=== PATIENT | male | born 1930 | race Hispanic/Latino ===

== ENCOUNTER 2017-03-23 15:35 | Inpatient (IN) | payer MEDICARE ==
[2017-03-23 15:47] VITALS: BMI 25.8
--- NOTE | 2017-03-23 16:28 | ED PDOC ---
Arrival/HPI - General Historian: Patient, Family - General Chief Complaint: Syncope Time Seen by Provider: 03/23/17 15:41 - History of Present Illness Narrative History of Present Illness (Text): 03/23/17 16:22 Pt is a 86 year old male with a complicated past medical history including HTN, DM, CHF with last known EF of 20%, AV valve replacement, CAD, CABGx3, [place] 01/2017 , carotidectomy for blockage, mesenteric ischemia and chronic diarrhea presents with syncopal episode 1 hour prior to presentation to the emergency department. Pt is joined by family in room. At the time of the syncopal episode the patient was changing his shirt while standing when he began to feel dizzy and passed out into the arms of his daughter. His daughter denies trauma to the head. Family indicates the patient has had a combination of watery diarrhea, poor oral intake due to lack of appetite, and episodes of intense abdominal pain for the past week. Patient denies chest pain, palpatations, headache, fever, shortness of breath, and difficulty with urination. (Otf [place]) Past Medical History - Provider Review Nursing Documentation Reviewed: Yes - Infectious Disease Hx of Infectious Diseases: None - Tetanus Immunization Tetanus Immunization: Unknown - Cardiac Hx Cardiac Disorders: Yes Hx [place]: Yes (January 2017) Hx Hypertension: Yes Other/Comment: CABG X2, AORTIC VALVE REPLACED. ANGIOPLASTY - Pulmonary Hx Respiratory Disorders: No - Neurological Hx Neurological Disorder: Yes (Frequent Falls) Other/Comment: FREQUENT FALLS - HEENT Hx HEENT Disorder: No - Renal Hx Renal Disorder: No - Endocrine/Metabolic Hx Endocrine Disorders: Yes Hx Diabetes Mellitus Type 1: Yes - Hematological/Oncological Hx Blood Disorders: Yes Hx Cancer: Yes (PROSTATE & SKIN) - Integumentary Hx Dermatological Disorder: Yes (Skin Cancer) Other/Comment: UNKNOWN SKIN CA - Musculoskeletal/Rheumatological Hx Musculoskeletal Disorders: Yes Hx Falls: Yes - Gastrointestinal Hx Gastrointestinal Disorders: Yes (chronic diarrhea) - Genitourinary/Gynecological Hx Genitourinary Disorders: Yes Hx Prostate Problems: Yes - Psychiatric Hx Psychophysiologic Disorder: No Hx Substance Use: No - Surgical History Hx Cardiac Catheterization: Yes Hx Coronary Stent: Yes Hx Open Heart Surgery: Yes (right carotid artery angio plasty left femeral artery) Hx Valve Replacement: Yes (aortic) - Suicidal Assessment Feels Threatened In Home Enviroment: No Family/Social History - Physician Review Nursing Documentation Reviewed: Yes Family/Social History: Unknown Family HX Smoking Status: Former Smoker Hx Alcohol Use: No Hx Substance Use: No Allergies/Home Meds Allergies/Adverse Reactions: Allergies Iodinated Contrast- Oral and IV Dye Allergy (Verified 03/23/17 15:54) DIZZINESS iodine Allergy (Verified 03/23/17 15:54) DIZZINESS Home Medications: Home Meds Medication Instructions Recorded Confirmed Atorvastatin Calcium [Lipitor] 80 mg PO DAILY 01/09/14 03/23/17 Gemfibrozil 600 mg PO DAILY 01/09/14 03/23/17 Glipizide [Glipizide Xl] 2.5 mg PO BID 01/09/14 03/23/17 Isosorbide Mononitrate [Imdur] 30 mg PO DAILY 01/09/14 03/23/17 Metoprolol Succinate [Toprol XL] 100 mg PO DAILY 01/09/14 03/23/17 Clopidogrel [Plavix] 75 mg PO DAILY 03/23/17 03/23/17 Lisinopril [Zestril] 10 mg PO DAILY 03/23/17 03/23/17 Lisinopril/Hydrochlorothiazide 25 mg PO DAILY 03/23/17 03/23/17 [Lisinopril-Hctz 20-25 mg Tab] Review of Systems - Review of Systems Constitutional: Weight Change (weight loss). absent: Fevers Eyes: Vision Changes (blurry vision) Respiratory: absent: SOB, Cough Cardiovascular: absent: Chest Pain, Palpitations, Edema Gastrointestinal: Abdominal Pain, Diarrhea (acute on chronic), Nausea, Vomiting (x1 episode) Genitourinary Male: absent: Dysuria, Frequency Musculoskeletal: Back Pain (lower back pain) Skin: absent: Rash, Pruritis Neurological: Dizziness. absent: Headache, Focal Weakness Psychiatric: absent: Anxiety, Depression Physical Exam Vital Signs Reviewed: Yes Temperature: Afebrile Blood Pressure: Hypotensive Pulse: Regular Respiratory Rate: Normal Appearance: Positive for: Well-Appearing Pain Distress: None Mental Status: Positive for: Alert and Oriented X 3 Finger Stick Blood Glucose: 147 - Systems Exam Head: Present: Atraumatic, Normocephalic Pupils: Present: PERRL Extroacular Muscles: Present: EOMI Conjunctiva: Present: Normal Mouth: Present: Moist Mucous Membranes Neck: Present: Normal Range of Motion Respiratory/Chest: Present: Clear to Auscultation, Good Air Exchange. No: Respiratory Distress, Wheezes, Rales Cardiovascular: Present: Regular Rate and Rhythm, Murmurs (systolic ejection murmur) Abdomen: Present: Distention, Normal Bowel Sounds. No: Tenderness, Peritoneal Signs Upper Extremity: Present: Normal Inspection, Normal ROM, NORMAL PULSES Lower Extremity: Present: Normal Inspection, NORMAL PULSES, Normal ROM Neurological: Present: GCS=15, CN II-XII Intact, Speech Normal, Motor Func Grossly Intact, Normal Sensory Function Skin: Present: Warm, Dry Psychiatric: Present: Alert, Oriented x 3 Medical Decision Making - Lab Interpretations I have reviewed the lab results: Yes - EKG Interpretation Interpreted by ED Physician: Yes Type: 12 lead EKG ED Course and Treatment: 03/23/17 16:41 Impression: Mr. Chun is an 86 year old male with significant past medical history for CAD , CABGx3, [place], HTN, AV valve replacement, primary AV block, mesenteric ischemia and history of prostate cancer who presents with one syncopal episode 1 hour prior to presentation to the emergency department. Differential Diagnosis included but are not limited to: - syncope 2/2 neurogenic vs. hypovolemic vs. cardiacgenic - abdominal pain 2/2 mesenteric ischemia vs. gastroenteritis vs. aortic aneurysm - Acute Kidney injury Plan: - LABS: CBC, CMP, Mg, Phos, Lipase, PT, PTT, CK, Troponin, Urinalysis - IMAGING: EKG, CXR, Head CT, CT Angiogram of abdomen - Meds: IVF -- Reassess and disposition Progress Notes: 03/23/17 17:04 03/23/17 17:31 - Orthostatic VS positive - IV contrast CT abdomen cancelled 2/2 elevated Cr function, will go ahead with non-contrast CT - IVF for rehydration being tolerated 03/23/17 17:57 - Lactate 4.0 with negative SIRS criteria credits elevation likely 2/2 volume depletion (Otf [place]) 03/23/17 18:39 86 yo male s/p syncopal episode. Patient also reports intermittent abdominal pain and diarrhea. No abdominal pain now. I agree with resident history, physical, assessment and disposition, except that patient does not have an elevated lactic acid at 4.0 as noted. Exam: Abd soft and not tender. No distended. Neuro; CN2-12 intact, NFD, sensation intact, MS 5/5 Case was discussed with Dr. Smiley who knows patient well. He evaluated patient in the ED. He recommended a clear liquid diet and to pace him on consult. Case discussed with Dr. Correa who agrees to admit to Remote Telemetry. Accession No. : [id number] Patient Name / ID : PETE Colmenares / [id number] Exam Date : 03/23/2017 18:00:36 ( Approved ) Shuttlecock Assembler : Moshe Bell MD PROCEDURE: CT HEAD WITHOUT CONTRAST. IMPRESSION: No intracranial mass, hemorrhage or evidence of acute infarct. Age-appropriate involutional changes 03/23/17 18:46 Accession No. : [id number] Patient Name / ID : PETE Colmenares / [id number] Exam Date : 03/23/2017 18:04:39 ( Approved ) Creator : Moshe Bell MD Report Date : 03/23/2017 18:44:16 PROCEDURE: CT Abdomen and Pelvis without intravenous contrast COMPARISON: 05/28/2013 IMPRESSION: No acute abnormality. Saccular infrarenal abdominal aortic aneurysm mildly increased in size from 05/28/2013. Cholelithiasis without evidence of cholecystitis. Cardiomegaly and CABG. (Alex Crowley) - Lab Interpretations Lab Results: 03/23/17 16:31 03/23/17 16:31 Lab Results 03/23/17 17:25: Urine Color Yellow, Urine Appearance Clear, Urine pH 6.0, Ur Specific [place] 1.020, Urine Protein Negative, Urine Glucose (UA) Negative, Urine Ketones Negative, Urine Blood Negative, Urine Nitrate Negative, Urine Bilirubin Negative, Urine Urobilinogen 0.2, Ur Leukocyte Esterase Negative 03/23/17 16:35: PT 11.3, INR 1.05, APTT 27.0 03/23/17 16:31: Sodium 133, Potassium 3.9, Chloride 96 L, Carbon Dioxide 22, Anion Gap 19, BUN 98 H, Creatinine 2.3 H, Est GFR ( Amer) 33, Est GFR ( Non-Af Amer) 27, Random Glucose 129 H, Calcium 9.4, Phosphorus 5.7 H, Magnesium 2.3 H, Total Bilirubin 0.8, AST 19, ALT 20, Alkaline Phosphatase 85, Lactate Dehydrogenase 421, Total Creatine Kinase 76, Troponin I 0.02 D, Total Protein 7.2, Albumin 3.9, Globulin 3.3, Albumin/Globulin Ratio 1.2, Lipase 159 03/23/17 16:31: WBC 10.4, RBC 3.44 L, Hgb 11.5 L, Hct 34.2 L, MCV 99.4, MCH 33.4 , MCHC 33.6, RDW 13.7, Plt Count 161, MPV 12.5 H, Gran % 71.0 H, Lymph % (Auto) 17.4 L, [place] % (Auto) 11.0 H, Eos % (Auto) 0.5 L, Baso % (Auto) 0.1, Gran # 7.40 H, Lymph # 1.8, [place] # 1.2 H, Eos # 0.1, Baso # 0.01 - RAD Interpretation Radiology Orders: 03/23/17 16:35 HEAD W/O CONTRAST [CT] Stat 03/23/17 16:36 CHEST PORTABLE [RAD] Stat 03/23/17 16:58 ABD & PELVIS W/O PO OR IV CONT [CT] Stat - EKG Interpretation EKG Interpretation (Text): 03/23/17 16:49 NSR w/ rate of 70 1st degree AV block No acute changes from previous EKG (Otf [place]) - Medication Orders Current Medication Orders: Acetaminophen (Tylenol 325mg Tab) 650 mg PO Q4H PRN PRN Reason: Pain, Mild (1-3) Sodium Chloride (Sodium Chloride 0.9%) 1,000 mls @ 125 mls/hr IV .Q8H YULISA Last Admin: 03/23/17 17:08 Dose: 125 mls/hr Sodium Chloride (Sodium Chloride 0.9%) 1,000 mls @ 100 mls/hr IV .Q10H STA Stop: 03/24/17 04:39 Ondansetron HCl (Zofran Inj) 4 mg IVP Q4H PRN PRN Reason: Nausea/Vomiting - PA / [employer]PERATOR / Resident Statement / has reviewed & agrees with the documentation as recorded. / has examined the patient and agrees with the treatment plan. Disposition/Present on Arrival - Present on Arrival Any Indicators Present on Arrival: No History of DVT/PE: No History of Uncontrolled Diabetes: No Urinary Catheter: No History of Decub. Ulcer: No History Surgical Site Infection Following: None - Disposition Have Diagnosis and Disposition been Completed?: Yes Disposition Time: 18:15 Patient Plan: Admission - Disposition Diagnosis: SANCHEZ (acute kidney injury), Hypovolemia Disposition: HOSPITALIZED Patient Problems: Current Active Problems Problem Status Onset SANCHEZ (acute kidney injury) Acute Hypovolemia Acute Condition: STABLE Referrals: Mayco Dixon MD [Primary Care Provider] - Follow up with primary
[2017-03-23 16:41] LABS: BASO # 0.01 K/mm3 (0.0-2.0); BASO % 0.1 % (0.0-3.0); EOS # 0.1 (0.0-0.7); EOS % 0.5 % (1.5-5.0); HEMOGLOBIN 11.5 gm/dL (14.0-18.0); LYMPH # 1.8 (1.2-3.4); LYMPH % 17.4 % (22.0-35.0); MEAN CELL VOLUME 99.4 fL (80.0-105.0); MEAN CORPUSCULAR HEMOGLOBIN 33.4 pg (25.0-35.0); MEAN CORPUSCULAR HGB CONC 33.6 g/dl (31.0-37.0); MEAN PLATELET VOLUME 12.5 fl (7.0-11.0); MONO # 1.2 (0.1-0.6); PLATELET COUNT 161 10^3/uL (120.0-450.0); RBC 3.44 10^6/uL (3.5-6.1); RED CELL DISTRIBUTION WIDTH 13.7 % (11.5-14.5); WHITE BLOOD COUNT 10.4 10^3/ul (4.5-11.0)
[2017-03-23 16:53] LABS: ALB/GLOB RATIO 1.2 (1.1-1.8); ALBUMIN 3.9 g/dL (3.0-4.8); CALCIUM 9.4 mg/dL (8.4-10.5); MAGNESIUM 2.3 mg/dL (1.7-2.2)
[2017-03-23] MEDS: Sodium Chloride 0.9% 1,000 ML IV SCH (17:08)
[2017-03-23 17:27] LABS: INR 1.05 (0.93-1.08); PROTHROMBIN TIME 11.3 Seconds (9.9-11.8)
[2017-03-23 17:56] LABS: TROPONIN I 0.02 ng/mL
[2017-03-23 18:04] LABS: URINE BILIRUBIN NEGATIVE (NEGATIVE); URINE BLOOD NEGATIVE (NEGATIVE); URINE GLUCOSE (UA) NEGATIVE (NEGATIVE); URINE LEUKOCYTE ESTERASE NEGATIVE Leu/uL (NEGATIVE); URINE NITRATE NEGATIVE (NEGATIVE); URINE PROTEIN NEGATIVE mg/dL (<30 mg/dL); URINE UROBILINOGEN 0.2 E.U./dL (<1 E.U./dL)
[2017-03-23 18:06] LABS: URINE APPEARANCE CLEAR (CLEAR); URINE COLOR YELLOW (YELLOW)
--- NOTE | 2017-03-23 18:27 | CT ---
PROCEDURE: CT HEAD WITHOUT CONTRAST. HISTORY: syncope COMPARISON: 01/10/2014 TECHNIQUE: Axial computed tomography images were obtained through the head/brain without intravenous contrast. Radiation dose: Total exam DLP = 774.23 mGy-cm. This CT exam was performed using one or more of the following dose reduction techniques: Automated exposure control, adjustment of the mA and/or kV according to patient size, and/or use of iterative reconstruction technique. FINDINGS: HEMORRHAGE: No intracranial hemorrhage. BRAIN: No mass effect or edema. Mild to moderate diffuse age-appropriate cerebral atrophy. There is mild periventricular white matter lucency consistent with chronic microvascular ischemic change. Tiny white matter lacune in the high right frontal deep white matter. No evidence of acute infarct. VENTRICLES: Unremarkable. No hydrocephalus. CALVARIUM: Unremarkable. PARANASAL SINUSES: Unremarkable as visualized. No significant inflammatory changes. MASTOID AIR CELLS: Unremarkable as visualized. No inflammatory changes. OTHER FINDINGS: None. IMPRESSION: No intracranial mass, hemorrhage or evidence of acute infarct. Age-appropriate involutional changes.
[2017-03-23] MEDS ORDERED: Sodium Chloride 0.9% 1,000 ML IV STA (18:40)
--- NOTE | 2017-03-23 18:45 | CT ---
PROCEDURE: CT Abdomen and Pelvis without intravenous contrast HISTORY: abd pain COMPARISON: 05/28/2013 TECHNIQUE: Without contrast.. Contrast Dose: 0 Radiation dose: Total exam DLP = 415.95 mGy-cm. This CT exam was performed using one or more of the following dose reduction techniques: Automated exposure control, adjustment of the mA and/or kV according to patient size, and/or use of iterative reconstruction technique. FINDINGS: LOWER THORAX: Cardiomegaly. No infiltrate/ effusion. CABG. LIVER: Unremarkable. No gross lesion or ductal dilatation. Examination of 05/28/2013. GALLBLADDER AND BILE DUCTS: Cholelithiasis. No mural thickening or pericholecystic fluid. PANCREAS: Unremarkable. No gross lesion or ductal dilatation. SPLEEN: Unremarkable. ADRENALS: Unremarkable. No mass. KIDNEYS AND URETERS: Unremarkable. No hydronephrosis. No solid mass. VASCULATURE: Mildly saccular infrarenal abdominal aortic aneurysm measuring up to 4.6 cm A-P. This has increased slightly in size from 05/28/2013, at which time this measured 4.2 cm A-P. . Otherwise no significant change from prior. Small amount of curvilinear calcifications seen within the aneurysm lumen unchanged from prior examination. This is unlikely to represent chronic dissection. Uncertain significance. BOWEL: Unremarkable. No obstruction. No gross mural thickening. APPENDIX: Unremarkable. Normal appendix. PERITONEUM: Unremarkable. No free fluid. No free air. LYMPH NODES: Unremarkable. No enlarged lymph nodes. BLADDER: Unremarkable. REPRODUCTIVE: Radiation seed implants are seen in prostate bed. BONES: No acute fracture. Grade 1 retrolisthesis at L3-4. OTHER FINDINGS: None. IMPRESSION: No acute abnormality. Saccular infrarenal abdominal aortic aneurysm mildly increased in size from 05/28/2013. Cholelithiasis without evidence of cholecystitis. Cardiomegaly and CABG.
[2017-03-23 19:26] LABS: VENOUS BLOOD GAS BASE EXCESS -2.4 mmol/L (0.0-2.0); VENOUS BLOOD GAS PO2 54 mm/Hg (30-55); VENOUS BLOOD PH 7.31 (7.32-7.43)
--- NOTE | 2017-03-23 21:24 | CP.PCM.PN ---
Subjective - Date & Time of Evaluation Date of Evaluation: 03/23/17 Time of Evaluation: 21:23 - Subjective Subjective: Patient is alert and oriented x3, admitted for syncopal episode, requested to be DNR/DNI, patients family is aware of the same, PMD has been notified by the nurse. DNR/DNI order inserted in the chart. Objective - Vital Signs/Intake and Output Vital Signs (last 24 hours): Temp Pulse Resp BP Pulse Ox 98.6 F 61 16 120/65 100 03/23/17 21:03 03/23/17 21:03 03/23/17 21:03 03/23/17 21:03 03/23/17 21:03 - Medications Medications: Current Medications Acetaminophen (Tylenol 325mg Tab) 650 mg PO Q4H PRN PRN Reason: Pain, Mild (1-3) Sodium Chloride (Sodium Chloride 0.9%) 1,000 mls @ 125 mls/hr IV .Q8H YULISA Last Admin: 03/23/17 17:08 Dose: 125 mls/hr Sodium Chloride (Sodium Chloride 0.9%) 1,000 mls @ 100 mls/hr IV .Q10H STA Stop: 03/24/17 04:39 Ondansetron HCl (Zofran Inj) 4 mg IVP Q4H PRN PRN Reason: Nausea/Vomiting - Labs Labs: PT 11.3 Seconds (9.9-11.8) 03/23/17 16:35 INR 1.05 (0.93-1.08) 03/23/17 16:35 APTT 27.0 Seconds (23.7-30.8) 03/23/17 16:35
[2017-03-24] MEDS: Sodium Chloride 0.9% 1,000 ML IV SCH ×2 (04:17→20:50)
[2017-03-24 08:37] LABS: BASO # 0.01 K/mm3 (0.0-2.0); BASO % 0.1 % (0.0-3.0); EOS # 0.1 (0.0-0.7); EOS % 1.3 % (1.5-5.0); GRAN # 5.92 (1.4-6.5); GRAN % 67.5 % (50.0-68.0); HEMOGLOBIN 11.1 gm/dL (14.0-18.0); LYMPH # 1.7 (1.2-3.4); LYMPH % 18.9 % (22.0-35.0); MEAN CELL VOLUME 103.3 fL (80.0-105.0); MEAN CORPUSCULAR HEMOGLOBIN 33.7 pg (25.0-35.0); MEAN CORPUSCULAR HGB CONC 32.6 g/dl (31.0-37.0); MEAN PLATELET VOLUME 12.9 fl (7.0-11.0); MONO # 1.1 (0.1-0.6); MONO % 12.2 % (1.0-6.0); PLATELET COUNT 130 10^3/uL (120.0-450.0); RBC 3.29 10^6/uL (3.5-6.1); RED CELL DISTRIBUTION WIDTH 13.6 % (11.5-14.5); WHITE BLOOD COUNT 8.8 10^3/ul (4.5-11.0)
[2017-03-24 08:52] LABS: ALB/GLOB RATIO 1.2 (1.1-1.8); ALBUMIN 3.8 g/dL (3.0-4.8); CALCIUM 9.1 mg/dL (8.4-10.5)
--- NOTE | 2017-03-24 08:52 | RAD ---
HISTORY: Abdominal pain COMPARISON: No prior. FINDINGS: LUNGS: The lungs are clear. PLEURA: No significant pleural effusion identified, no pneumothorax apparent. CARDIOVASCULAR: The heart is normal in size. Status post CABG. OSSEOUS STRUCTURES: No significant abnormalities. VISUALIZED UPPER ABDOMEN: Normal. OTHER FINDINGS: None. IMPRESSION: No active pulmonary disease.
[2017-03-24] MEDS: Metoprolol Succinate 100 mg XL Tab PO SCH (09:36)
--- NOTE | 2017-03-24 12:38 | CP.PCM.CON ---
<Elva Gillis - Last Filed: 03/24/17 12:41> History of Present Illness - History of Present Illness History of Present Illness: Seen and examined at bedside, chart reviewed. Request consult for abdominal pain. HPI: This is a 86 year old female with a history of mesenteric Ischemic, HTN, CHF with EF of 20%, AV valve replacement, CABG, recent [place](01/2017), Cdiff, came to the hospital with episode of syncopal episode. The patient was at home at the time, changing his clothes started to feel dizzy and passed out, his daughter was caught the patient, pt did not have any head injury. Ct scan of the head was negative. He states that he had been having watery diarrhea, he says that it is chronic, he had poor oral intake , was also having abdominal pain. He denies any recent antibiotics use, contributing oral intake, or sick contacts or travel. Prior to coming to hospital he had taken Keopectate, his last BM was yesterday prior coming to the ER, No BM since admitted. He was eating breakfast, no N/V, abdominal pain or complaints of bleeding. He had a ct scan A&P and report saccular infra renal AAA w/ mild increase from 4.2 to 4.6. GB stone. PMH: messenteric ischemia, CHF, HTN, recent [place], Cdiff, Aortic Valve replacement , HLD, DM, type II, Prostate Cnacer, Skin Cancer PSH: Carotidectomy for blockage, CABG, Aortic valve replacement Social HX: former smoker, denies ETOH, drugs Allergies: Iodinated contrast: oral and IV dye MEDS: reviewed as per MAR Family HX: noncontributory at this time ROS: systems reviewed, with positive findings, see HPI Past Patient History - Infectious Disease Hx of Infectious Diseases: None - Tetanus Immunizations Tetanus Immunization: Unknown - Past Social History Smoking Status: Former Smoker - CARDIAC Hx Cardiac Disorders: Yes Hx Circulatory Problems: Yes Hx Congestive Heart Failure: Yes Hx Hypertension: Yes Other/Comment: CABG X2, AORTIC VALVE REPLACED. ANGIOPLASTY - PULMONARY Hx Respiratory Disorders: No - NEUROLOGICAL Hx Neurological Disorder: Yes (Frequent [place]) Other/Comment: F[place]QU[place] - HEENT Hx HEENT Problems: No - RENAL Hx Chronic Kidney Disease: No - ENDOCRINE/METABOLIC Hx Endocrine Disorders: Yes Hx Diabetes Mellitus Type 2: Yes - HEMATOLOGICAL/ONCOLOGICAL Hx Blood Disorders: Yes Hx Cancer: Yes (PROSTATE & SKIN) Hx Shingles: Yes - INTEGUMENTARY Hx Dermatological Problems: Yes (Skin Cancer) Other/Comment: UNKNOWN SKIN CA - MUSCULOSKELETAL/RHEUMATOLOGICAL Hx Musculoskeletal Disorders: Yes Hx Falls: Yes - GASTROINTESTINAL Hx Gastrointestinal Disorders: Yes (chronic diarrhea) - GENITOURINARY/GYNECOLOGICAL Hx Genitourinary Disorders: Yes Hx Prostate Problems: Yes - PSYCHIATRIC Hx Psychophysiologic Disorder: No - SURGICAL HISTORY Hx Cardiac Catheterization: Yes Hx Coronary Stent: Yes Hx Open Heart Surgery: Yes (right carotid artery angio plasty left femeral artery) Hx Valve Replacement: Yes (aortic) Meds Allergies/Adverse Reactions: Allergies Allergy/AdvReac Type Severity Reaction Status Date / Time Iodinated Contrast- Oral and Allergy DIZZINESS Verified 03/23/17 15:54 IV Dye iodine Allergy DIZZINESS Verified 03/23/17 15:54 - Medications Medications: Current Medications Acetaminophen (Tylenol 325mg Tab) 650 mg PO Q4H PRN PRN Reason: Pain, Mild (1-3) Atorvastatin Calcium (Lipitor) 80 mg PO DAILY [facility] Last Admin: 03/24/17 09:35 Dose: 80 mg Clopidogrel Bisulfate (Plavix) 75 mg PO DAILY [facility] Last Admin: 03/24/17 09:35 Dose: 75 mg Gemfibrozil (Lopid) 600 mg PO DAILY [facility] Last Admin: 03/24/17 09:35 Dose: 600 mg Sodium Chloride (Sodium Chloride 0.9%) 1,000 mls @ 75 mls/hr IV .[id number] [facility] Metoprolol Succinate (Toprol Xl) 100 mg PO DAILY [facility] Last Admin: 03/24/17 09:36 Dose: 100 mg Ondansetron HCl (Zofran Inj) 4 mg IVP Q4H PRN PRN Reason: Nausea/Vomiting Physical Exam - Constitutional Appears: No Acute Distress - Head Exam Head Exam: NORMAL INSPECTION - Eye Exam Eye Exam: Normal appearance. absent: Scleral icterus - ENT Exam ENT Exam: Mucous Membranes Moist - Neck Exam Neck exam: Positive for: Normal Inspection - Respiratory Exam Respiratory Exam: Decreased Breath Sounds, NORMAL BREATHING PATTERN. absent: Rhonchi, Wheezes, Respiratory Distress - Cardiovascular Exam Cardiovascular Exam: +S1, +S2 - GI/Abdominal Exam GI & Abdominal Exam: Normal Bowel Sounds, Soft. absent: Distended, Guarding, Organomegaly, Rebound, Tenderness - Extremities Exam Extremities exam: Positive for: pedal pulses present. Negative for: calf tenderness, pedal edema - Neurological Exam Neurological exam: Alert, Oriented x3 - Skin Skin Exam: Dry, Warm Results - Vital Signs Recent Vital Signs: Last Vital Signs Temp 98.6 F 03/24/17 06:00 Pulse 71 03/24/17 10:00 Resp 22 03/24/17 06:00 BP 110/58 L 03/24/17 09:36 Pulse Ox 95 03/24/17 06:00 - Labs Result Diagrams: 03/24/17 08:15 03/24/17 08:15 Labs: Laboratory Results - last 24 hr 03/23/17 03/24/17 03/24/17 19:21 08:15 08:15 WBC 8.8 RBC 3.29 L Hgb 11.1 L Hct 34.0 L MCV 103.3 MCH 33.7 MCHC 32.6 RDW 13.6 Plt Count 130 MPV 12.9 H Gran % 67.5 Lymph % (Auto) 18.9 [place] % (Auto) 12.2 H Eos % (Auto) 1.3 L Baso % (Auto) 0.1 Gran # 5.92 Lymph # 1.7 [place] # 1.1 H Eos # 0.1 Baso # 0.01 pO2 54 VBG pH 7.31 L VBG pCO2 48.0 VBG HCO3 24.2 VBG Total CO2 25.7 VBG O2 Sat (Calc) 88.8 H VBG Base Excess -2.4 L VBG Potassium 3.6 Sodium 133.0 138 Chloride 99.0 103 Glucose 96 Lactate 1.2 FiO2 21.0 Potassium 4.3 Carbon Dioxide 23 Anion Gap 16 BUN 86 H Creatinine 1.6 H Est GFR ( Amer) 50 Est GFR (Non-Af Amer) 41 Random Glucose 115 H Calcium 9.1 Total Bilirubin 0.8 AST 20 ALT 20 Alkaline Phosphatase 88 Total Protein 7.0 Albumin 3.8 Globulin 3.2 Albumin/Globulin Ratio 1.2 Venous Blood Potassium 3.6 Assessment & Plan - Assessment and Plan (Free Text) Assessment: ASSESSMENT: Abdominal pain Diarrhea, acute on chronic? Dehydration Syncopy H/O Mesenteric Ischemia AAA, 4.6 cm, increase in size (4.2) evident on ct scan H/O Cdiff HTN CAD H/O CABG Aortic Valve Replacement DM, type II PLAN: stool cdiff stool culture continue IVF for hydration DVT prophylaxsis on Plavix monitor electrolytes diet as tolerated Thank you for this consult and for allowing us to participate in your patient care, will make further recommendation based upon clinical course. Seen and discussed with Dr. Smiley. <Prudence Smiley V - Last Filed: 03/24/17 21:49> Meds - Medications Medications: Current Medications Acetaminophen (Tylenol 325mg Tab) 650 mg PO Q4H PRN PRN Reason: Pain, Mild (1-3) Atorvastatin Calcium (Lipitor) 80 mg PO DAILY [facility] Last Admin: 03/24/17 09:35 Dose: 80 mg Clopidogrel Bisulfate (Plavix) 75 mg PO DAILY [facility] Last Admin: 03/24/17 09:35 Dose: 75 mg Gemfibrozil (Lopid) 600 mg PO DAILY [facility] Last Admin: 03/24/17 09:35 Dose: 600 mg Sodium Chloride (Sodium Chloride 0.9%) 1,000 mls @ 75 mls/hr IV .[id number] [facility] Metoprolol Succinate (Toprol Xl) 100 mg PO DAILY [facility] Last Admin: 03/24/17 09:36 Dose: 100 mg Ondansetron HCl (Zofran Inj) 4 mg IVP Q4H PRN PRN Reason: Nausea/Vomiting Results - Vital Signs Recent Vital Signs: Last Vital Signs Temp 98.6 F 03/24/17 16:00 Pulse 65 03/24/17 18:00 Resp 19 03/24/17 16:00 BP 121/61 03/24/17 16:00 Pulse Ox 95 03/24/17 16:00 - Labs Result Diagrams: 03/24/17 08:15 03/24/17 08:15 Labs: Laboratory Results - last 24 hr 03/24/17 03/24/17 08:15 08:15 WBC 8.8 RBC 3.29 L Hgb 11.1 L Hct 34.0 L MCV 103.3 MCH 33.7 MCHC 32.6 RDW 13.6 Plt Count 130 MPV 12.9 H Gran % 67.5 Lymph % (Auto) 18.9 L [place] % (Auto) 12.2 H Eos % (Auto) 1.3 L Baso % (Auto) 0.1 Gran # 5.92 Lymph # 1.7 [place] # 1.1 H Eos # 0.1 Baso # 0.01 Sodium 138 Potassium 4.3 Chloride 103 Carbon Dioxide 23 Anion Gap 16 BUN 86 H Creatinine 1.6 H Est GFR ( Amer) 50 Est GFR (Non-Af Amer) 41 Random Glucose 115 H Calcium 9.1 Total Bilirubin 0.8 AST 20 ALT 20 Alkaline Phosphatase 88 Total Protein 7.0 Albumin 3.8 Globulin 3.2 Albumin/Globulin Ratio 1.2 Attending/Attestation - Attestation I have personally seen and examined this patient.: Yes I have fully participated in the care of the patient.: Yes I have reviewed all pertinent clinical information: Yes Notes (Text): This
--- NOTE | 2017-03-24 13:13 | CARD ---
APPROVED REPORT EKG Measurement Heart [id number] <Conclusion> Sinus rhythm with 1st degree AV block Left bundle branch block Abnormal ECG
--- NOTE | 2017-03-24 17:59 | HP ---
HISTORY OF PRESENT ILLNESS: This is an 86-year-old male who has come into the hospital with a history of coronary artery disease, CABG, carotidectomy, mesenteric ischemia. The patient says he has been having diarrhea. He felt like he is going to pass out prior to coming to the ER. The patient was changing his shirt and he says he became dizzy. He says he had taken some laxatives as well. He has been having poor appetite. He has been having abdominal pain for the past week. The patient is having watery diarrhea. He says he is feeling better. He denies any fevers or chills. No nausea. No weakness in the arms or the legs. No palpitations, no headaches. All other review of symptoms are within normal limits. ALLERGIES: IODINATED CONTRAST. HOME MEDICATIONS: Lipitor, gemfibrozil, glipizide, Imdur, Toprol, Plavix, Zestril, lisinopril/hydrochlorothiazide. PAST MEDICAL HISTORY: As above. Also, diabetes type 2, hearing impairment, falls, right carotid artery angioplasty, dyslipidemia, hypertension, prostate and skin cancer. SOCIAL HISTORY: He is a former smoker. He denies alcohol and substance abuse. FAMILY HISTORY: Noncontributory. PHYSICAL EXAMINATION: GENERAL: Lying in bed, comfortable, in no acute distress. VITAL SIGNS: Temperature 98.6, pulse of 92, blood pressure is 108/56, respirations 22, O2 saturation 95%. Height is 5 feet 6 inches, weight is 160 pounds, BMI is 25.8. HEENT: Anicteric sclerae. PERRLA. EOMI. Mouth: No oral lesions. No ulcers. Moist mucosa. NECK: No JVD, adenopathy, thyromegaly or bruits. CARDIOVASCULAR: S1 and S2 regular. No murmurs, rubs or gallops. LUNGS: Good bilateral air entry. No wheezes, rales or rhonchi. Chest gutierrez, he has a mid thoracic scar from his CABG. ABDOMEN: Bowel sounds are positive, soft, nontender, nondistended. No hepatosplenomegaly. PSYCHIATRIC: He is alert, awake and oriented. Good insight and normal affect. NEUROLOGICAL: No facial asymmetry. Tongue is midline. No uvular deviation. Power is 5/5 in upper extremity and lower extremity. EXTREMITIES: Full range of motion. 1+ pulses bilaterally. No edema. SKIN: No rashes. LABORATORY DATA: Sodium is 133, creatinine is 2.3, repeat creatinine is 1.6, magnesium is 2.3. Troponin is 0.02. White count of 8.8, hemoglobin 7.1, platelet count is 130. INR is 1.05. Urine shows ketones are negative, blood is negative, nitrites are negative. ABG done shows a pH of 7.3 with a pCO2 of 48, potassium is 3.6. CT of the abdomen and pelvis done, shows no acute abnormality. There is a saccular infrarenal abdominal aortic aneurysm, mildly increased from 05/2013, being followed by Dr. *------*. Chest x-ray done shows no active disease. Head CT done shows no intracranial mass, hemorrhage or evidence of acute infarct. EKG shows a heart rate of 70, first-degree AV block. There is a left bundle-branch block. ASSESSMENT: 1. Dizziness secondary to hypovolemia. 2. Acute kidney injury. 3. Coronary artery disease. 4. Diabetes type 2. 5. Hypertension. 6. Dyslipidemia. 7. Do not resuscitate/do not intubate. PLAN: The patient is currently comfortable. He is on gemfibrozil for his dyslipidemia, he is on Lipitor for his dyslipidemia as well. He is given IV fluids at 125 mL an hour overnight. His creatinine has improved. He is going to continue his IV fluids. His creatinine is slowly improving to baseline. He is on Tylenol. I will hold his EBENEZER inhibitors. He is on a heart healthy diet. I will get physical therapy to evaluate the patient. I think he will mostly likely be able to walk on his own as he was independent prior to coming to the hospital. He was dizzy because of his hypovolemia and this should improve. He is also DNR/DNI. We will continue that. Forest Murillo MD
[2017-03-25 09:02] VITALS: BP 135/63; RESP 20; TEMP 97.4; O2SAT 97
[2017-03-25] MEDS: Sodium Chloride 0.9% 1,000 ML IV SCH (09:43)
[2017-03-25] MEDS: Metoprolol Succinate 100 mg XL Tab PO SCH (09:43)
--- NOTE | 2017-03-25 11:04 | CP.PCM.PN ---
<Elva Gillis - Last Filed: 03/25/17 11:03> Subjective - Date & Time of Evaluation Date of Evaluation: 03/25/17 Time of Evaluation: 08:40 - Subjective Subjective: S&E at bedside, eating breakfast, has not had any BM last night or this am yet, he feel better, no N/V, no SOB or abdominal pain. No reports of acute overnight events. Objective - Vital Signs/Intake and Output Vital Signs (last 24 hours): Temp Pulse Resp BP Pulse Ox 97.4 F L 67 20 135/63 97 03/25/17 06:00 03/25/17 09:43 03/25/17 06:00 03/25/17 09:43 03/25/17 06:00 Intake and Output: 03/25/17 03/25/17 06:59 18:59 Intake Total 1600 Output Total 1000 Balance 600 - Medications Medications: Current Medications Acetaminophen (Tylenol 325mg Tab) 650 mg PO Q4H PRN PRN Reason: Pain, Mild (1-3) Atorvastatin Calcium (Lipitor) 80 mg PO DAILY [facility] Last Admin: 03/25/17 09:42 Dose: 80 mg Clopidogrel Bisulfate (Plavix) 75 mg PO DAILY [facility] Last Admin: 03/25/17 09:42 Dose: 75 mg Gemfibrozil (Lopid) 600 mg PO DAILY [facility] Last Admin: 03/25/17 09:42 Dose: 600 mg Sodium Chloride (Sodium Chloride 0.9%) 1,000 mls @ 75 mls/hr IV .[id number] [facility] Last Admin: 03/25/17 09:43 Dose: 75 mls/hr Metoprolol Succinate (Toprol Xl) 100 mg PO DAILY [facility] Last Admin: 03/25/17 09:43 Dose: 100 mg Ondansetron HCl (Zofran Inj) 4 mg IVP Q4H PRN PRN Reason: Nausea/Vomiting - Labs Labs: 03/24/17 08:15 03/24/17 08:15 PT 11.3 Seconds (9.9-11.8) 03/23/17 16:35 INR 1.05 (0.93-1.08) 03/23/17 16:35 APTT 27.0 Seconds (23.7-30.8) 03/23/17 16:35 - Constitutional Appears: No Acute Distress - Eye Exam Eye Exam: Normal appearance. absent: Scleral icterus - ENT Exam ENT Exam: Mucous Membranes Moist - Neck Exam Neck Exam: Normal Inspection - Respiratory Exam Respiratory Exam: Decreased Breath Sounds, NORMAL BREATHING PATTERN. absent: Rales, Wheezes, Respiratory Distress - Cardiovascular Exam Cardiovascular Exam: +S1, +S2 - GI/Abdominal Exam GI & Abdominal Exam: Soft, Normal Bowel Sounds. absent: Distended, Guarding, Tenderness, Organomegaly, Rebound - Extremities Exam Extremities Exam: absent: Calf Tenderness, Pedal Edema - Neurological Exam Neurological Exam: Alert, Awake, Oriented x3 - Skin Skin Exam: Dry, Warm Assessment and Plan - Assessment and Plan (Free Text) Assessment: ASSESSMENT: Resolved Abdominal pain s/p Diarrhea, acute on chronic? s/p Dehydration Syncopy H/O Mesenteric Ischemia AAA, 4.6 cm, increase in size (4.2) evident on ct scan H/O Cdiff HTN CAD H/O CABG Aortic Valve Replacement DM, type II PLAN: pending stool cdiff and stool culture, no BM yet continue IVF for hydration DVT prophylaxsis on Plavix monitor electrolytes diet as tolerated Seen and discussed with Dr. Smiley. <Prudence Smiley V - Last Filed: 03/25/17 23:46> Objective - Vital Signs/Intake and Output Vital Signs (last 24 hours): Temp Pulse Resp BP Pulse Ox 97.4 F L 63 20 135/63 97 03/25/17 06:00 03/25/17 14:00 03/25/17 06:00 03/25/17 09:43 03/25/17 06:00 Intake and Output: 03/25/17 03/26/17 18:59 06:59 Intake Total 600 Output Total 400 Balance 200 - Labs Labs: 03/24/17 08:15 03/24/17 08:15 PT 11.3 Seconds (9.9-11.8) 03/23/17 16:35 INR 1.05 (0.93-1.08) 03/23/17 16:35 APTT 27.0 Seconds (23.7-30.8) 03/23/17 16:35 Attending/Attestation - Attestation Notes (Text): t
[2017-03-25 11:49] VITALS: PULSE 63
--- NOTE | 2017-03-25 13:05 | CON ---
DATE: 03/25/2017 HISTORY OF PRESENT ILLNESS: Mr. Chun is an 86-year-old male admitted to the hospital with abdominal pain and nausea and vomiting. He also had syncope at home. CAT scan of the head was negative. He reports watery diarrhea that is chronic in nature. Poor oral intake, was dehydrated. He also has history of mesenteric ischemia, hypertension and congestive heart failure with low ejection fraction of 20%. He has history of CABG and aortic valve replacement, recent [place] in 01/2017. Also has diabetes mellitus type 2, presented with ARF, elevated creatinine. He also has anemia with low hemoglobin of 11 g/dL. PAST MEDICAL HISTORY: Mesenteric ischemia, congestive heart failure, hypertension, recent [place], aortic valve replacement, diabetes mellitus type 2, prostate cancer. PAST SURGICAL HISTORY: CABG, aortic valve replacement. SOCIAL HISTORY: Former smoker. Denies any alcohol abuse. ALLERGIES: IODINE, CONTRAST ORAL AND IV DYE. FAMILY HISTORY: Noncontributory. No positive family history in mother and father. MEDICATIONS: Tylenol 650 mg q. 4 hours p.r.n., Lipitor 80 mg daily, Plavix 75 mg daily, gemfibrozil 600 mg daily, metoprolol 100 mg daily, Zofran 4 mg q. 4 hours p.r.n., IV fluids at 70 mL an hour with normal saline. REVIEW OF SYSTEMS: As per HPI. Rest of the 12-point review of systems reviewed and negative. PHYSICAL EXAMINATION: GENERAL: Comfortable in bed, in no acute distress. VITAL SIGNS: Stable, temperature 98.6, heart rate 70 per minute, respiratory rate 22 per minute, blood pressure 110/70, pulse ox is 95% on room air. HEENT: Normal. NECK: Supple. CHEST: Air entry present and equal bilaterally. No added sounds. CARDIOVASCULAR: Within normal limits. ABDOMEN: Soft, nontender. No hepatosplenomegaly. NEUROLOGIC: Alert and oriented x3. SKIN: Warm and dry. EXTREMITIES: No edema. SPINE: Nontender. LABORATORY DATA: White count 8.8, hemoglobin 11.1, hematocrit 34, platelet count 130, neutrophils 71%, monocytes 12%, lymphocytes 18%. Sodium 138, potassium 4.3, creatinine 1.6, previously 2.3. Glucose 115. Troponin 0.02. INR 1.05. ASSESSMENT: 1. Syncope/dizziness secondary to hypovolemia. 2. Acute kidney injury. 3. Coronary artery disease. 4. History of prostate cancer. 5. Dehydration. 6. Anemia. 7. Monocytosis, neutrophilia. 8. Hypertension. PLAN: He is currently comfortable, getting IV fluids. GI consultation Dr. Quinones. Stool C. diff pending. He has chronic diarrhea and doing evaluation. Electrolytes are normal, creatinine improved. EBENEZER inhibitor is on hold. We will continue supportive care. He has mild anemia, hemoglobin of 11; neutrophilia and monocytosis indicating viral infection. Renal function is improved. Thank you Dr. Chidi lamas allowing us to participate in Mr. Chun's care. Cecelia Diop MD MTDD
--- NOTE | 2017-03-25 22:51 | CP.PCM.DIS ---
Provider - Provider Date of Admission: 03/23/17 18:35 Attending physician: Forest Murillo MD Primary care physician: Mayco Dixon MD Time Spent in preparation of Discharge (in minutes): 60 Hospital Course - Lab Results Lab Results: Most Recent Lab Values WBC 8.8 10^3/ul (4.5-11.0) 03/24/17 08:15 RBC 3.29 10^6/uL (3.5-6.1) L 03/24/17 08:15 Hgb 11.1 gm/dL (14.0-18.0) L 03/24/17 08:15 Hct 34.0 % (42.0-52.0) L 03/24/17 08:15 MCV 103.3 fL (80.0-105.0) 03/24/17 08:15 MCH 33.7 pg (25.0-35.0) 03/24/17 08:15 MCHC 32.6 g/dl (31.0-37.0) 03/24/17 08:15 RDW 13.6 % (11.5-14.5) 03/24/17 08:15 Plt Count 130 10^3/uL (120.0-450.0) 03/24/17 08:15 MPV 12.9 fl (7.0-11.0) H 03/24/17 08:15 Gran % 67.5 % (50.0-68.0) 03/24/17 08:15 Lymph % (Auto) 18.9 % (22.0-35.0) L 03/24/17 08:15 [place] % (Auto) 12.2 % (1.0-6.0) H 03/24/17 08:15 Eos % (Auto) 1.3 % (1.5-5.0) L 03/24/17 08:15 Baso % (Auto) 0.1 % (0.0-3.0) 03/24/17 08:15 Gran # 5.92 (1.4-6.5) 03/24/17 08:15 Lymph # 1.7 (1.2-3.4) 03/24/17 08:15 [place] # 1.1 (0.1-0.6) H 03/24/17 08:15 Eos # 0.1 (0.0-0.7) 03/24/17 08:15 Baso # 0.01 K/mm3 (0.0-2.0) 03/24/17 08:15 PT 11.3 Seconds (9.9-11.8) 03/23/17 16:35 INR 1.05 (0.93-1.08) 03/23/17 16:35 APTT 27.0 Seconds (23.7-30.8) 03/23/17 16:35 pO2 54 mm/Hg (30-55) 03/23/17 19:21 VBG pH 7.31 (7.32-7.43) L 03/23/17 19:21 VBG pCO2 48.0 (40-60) 03/23/17 19:21 VBG HCO3 24.2 mmol/l (21-28) 03/23/17 19:21 VBG Total CO2 25.7 mmol.L (22-28) 03/23/17 19:21 VBG O2 Sat (Calc) 88.8 % (40-65) H 03/23/17 19:21 VBG Base Excess -2.4 mmol/L (0.0-2.0) L 03/23/17 19:21 VBG Potassium 3.6 mmol/L (3.6-5.2) 03/23/17 19:21 Sodium 133.0 mmol/L (132-148) 03/23/17 19:21 Chloride 99.0 mmol/L (98-107) 03/23/17 19:21 Glucose 96 mg/dl (75-110) 03/23/17 19:21 Lactate 1.2 mmol/L (0.7-2.1) 03/23/17 19:21 FiO2 21.0 % 03/23/17 19:21 Sodium 138 mmol/L (132-148) 03/24/17 08:15 Potassium 4.3 mmol/L (3.6-5.0) 03/24/17 08:15 Chloride 103 mmol/L (98-107) 03/24/17 08:15 Carbon Dioxide 23 mmol/L (21-33) 03/24/17 08:15 Anion Gap 16 (10-20) 03/24/17 08:15 BUN 86 mg/dL (7-21) H 03/24/17 08:15 Creatinine 1.6 mg/dL (0.5-1.4) H 03/24/17 08:15 Est GFR ( Amer) 50 03/24/17 08:15 Est GFR (Non-Af Amer) 41 03/24/17 08:15 Random Glucose 115 mg/dL (70-110) H 03/24/17 08:15 Calcium 9.1 mg/dL (8.4-10.5) 03/24/17 08:15 Phosphorus 5.7 mg/dL (2.5-4.5) H 03/23/17 16:31 Magnesium 2.3 mg/dL (1.7-2.2) H 03/23/17 16:31 Total Bilirubin 0.8 mg/dL (0.2-1.3) 03/24/17 08:15 AST 20 U/L (15-59) 03/24/17 08:15 ALT 20 U/L (7-56) 03/24/17 08:15 Alkaline Phosphatase 88 U/L (38-133) 03/24/17 08:15 Lactate Dehydrogenase 421 U/L (333-699) 03/23/17 16:31 Total Creatine Kinase 76 U/L (35-230) 03/23/17 16:31 Troponin I 0.02 ng/mL D 03/23/17 16:31 Total Protein 7.0 g/dL (5.8-8.3) 03/24/17 08:15 Albumin 3.8 g/dL (3.0-4.8) 03/24/17 08:15 Globulin 3.2 gm/dL 03/24/17 08:15 Albumin/Globulin Ratio 1.2 (1.1-1.8) 03/24/17 08:15 Lipase 159 U/L (23-300) 03/23/17 16:31 Venous Blood Potassium 3.6 mmol/L (3.6-5.2) 03/23/17 19:21 Urine Color Yellow (YELLOW) 03/23/17 17:25 Urine Appearance Clear (CLEAR) 03/23/17 17:25 Urine pH 6.0 (4.7-8.0) 03/23/17 17:25 Ur Specific [place] 1.020 (1.005-1.035) 03/23/17 17:25 Urine Protein Negative mg/dL (<30 mg/dL) 03/23/17 17:25 Urine Glucose (UA) Negative mg/dL (NEGATIVE) 03/23/17 17:25 Urine Ketones Negative mg/dL (NEGATIVE) 03/23/17 17:25 Urine Blood Negative (NEGATIVE) 03/23/17 17:25 Urine Nitrate Negative (NEGATIVE) 03/23/17 17:25 Urine Bilirubin Negative (NEGATIVE) 03/23/17 17:25 Urine Urobilinogen 0.2 E.U./dL (<1 E.U./dL) 03/23/17 17:25 Ur Leukocyte Esterase Negative Kari/uL (NEGATIVE) 03/23/17 17:25 - Hospital Course Hospital Course: DATE: 03/25/2017 HISTORY OF PRESENT ILLNESS: Mr. Chun is an 86-year-old male admitted to the hospital with abdominal pain and nausea and vomiting. He also had syncope at home. CAT scan of the head was negative. He reports watery diarrhea that is chronic in nature. Poor oral intake, was dehydrated. He also has history of mesenteric ischemia, hypertension and congestive heart failure with low ejection fraction of 20%. He has history of CABG and aortic valve replacement, recent [place] in 01/2017. Also has diabetes mellitus type 2, presented with ARF, elevated creatinine. He also has anemia with low hemoglobin of 11 g/dL. PAST MEDICAL HISTORY: Mesenteric ischemia, congestive heart failure, hypertension, recent [place], aortic valve replacement, diabetes mellitus type 2, prostate cancer. PAST SURGICAL HISTORY: CABG, aortic valve replacement. SOCIAL HISTORY: Former smoker. Denies any alcohol abuse. ALLERGIES: IODINE, CONTRAST ORAL AND IV DYE. FAMILY HISTORY: Noncontributory. No positive family history in mother and father. MEDICATIONS: Tylenol 650 mg q. 4 hours p.r.n., Lipitor 80 mg daily, Plavix 75 mg daily, gemfibrozil 600 mg daily, metoprolol 100 mg daily, Zofran 4 mg q. 4 hours p.r.n., IV fluids at 70 mL an hour with normal saline. REVIEW OF SYSTEMS: As per HPI. Rest of the 12-point review of systems reviewed and negative. PHYSICAL EXAMINATION: GENERAL: Comfortable in bed, in no acute distress. VITAL SIGNS: Stable, temperature 98.6, heart rate 70 per minute, respiratory rate 22 per minute, blood pressure 110/70, pulse ox is 95% on room air. HEENT: Normal. NECK: Supple. CHEST: Air entry present and equal bilaterally. No added sounds. CARDIOVASCULAR: Within normal limits. ABDOMEN: Soft, nontender. No hepatosplenomegaly. NEUROLOGIC: Alert and oriented x3. SKIN: Warm and dry. EXTREMITIES: No edema. SPINE: Nontender. LABORATORY DATA: White count 8.8, hemoglobin 11.1, hematocrit 34, platelet count 130, neutrophils 71%, monocytes 12%, lymphocytes 18%. Sodium 138, potassium 4.3, creatinine 1.6, previously 2.3. Glucose 115. Troponin 0.02. INR 1.05. ASSESSMENT: 1. Syncope/dizziness secondary to hypovolemia. 2. Acute kidney injury. 3. Coronary artery disease. 4. History of prostate cancer. 5. Dehydration. 6. Anemia. 7. Monocytosis, neutrophilia. 8. Hypertension. PLAN: He is currently comfortable, getting IV fluids. GI consultation Dr. Quinones. Stool C. diff pending. He has chronic diarrhea and doing evaluation. Electrolytes are normal, creatinine improved. EBENEZER inhibitor is on hold. We will continue supportive care. He has mild anemia, hemoglobin of 11; neutrophilia and monocytosis indicating viral infection. Renal function is improved. he is stable now. Discharge home. daughter bedside. Discussed with daughter about maintaining adequate hydration. She declined home care services. Cecelia Diop MD Discharge Exam - Head Exam Head Exam: NORMAL INSPECTION Discharge Plan - Follow Up Plan Condition: STABLE Disposition: HOME/ ROUTINE Instructions: Acute Kidney Injury (DC), Syncope (GEN)
--- NOTE | 2017-03-28 09:27 | PQF CHF ---
This form is a permanent part of the medical record Dr. Murillo, Patient was diagnosed with acute renal failure. With documentation of congestive heart failure please provide severity and type of CHF with EF% of 20% . Please see below the choices. Thank you. Clarification of your documentation is requested to better reflect the severity of illness and intensity of treatment of your patient. Indicators present [x] Diagnosis of CHF and/or history of CHF [] BNP > 200 [] Imaging Finding of Pulmonary Edema /Pleural Effusions [] Fluid/Volume Overload [] Pitting edema [] Ejection Fraction < 40% (Indicative of Systolic Heart Failure) [] Ejection Fraction > 40% (Indicative of Diastolic Heart Failure) [] Dyspnea / Orthopenea / Paroxysmal Nocturnal Dyspnea [] Other: Location in the medical record that reflects the above clinical findings: [] Treatment Provided: [] PHYSICIAN'S RESPONSE Based on your medical judgment of the clinical indicators outlined above, are you treating this patient for a known or suspected: [] Acute CHF [] Systolic [] Diastolic [] Combined [xx] Chronic CHF [xx] Systolic [] Diastolic [] Combined [] Acute on Chronic CHF []Systolic [] Diastolic [] Combined [] CHF due hypertension [] Acute systolic []Chronic systolic [] Acute/ chronic systolic [] Other, please indicate: [] [] If Unable to Determine, please check the box, sign and date. Present On Admission (POA) Indicator: [] Present at the time of admission [] Not present at the time of admission [] Clinically Undetermined In responding to this query, please exercise your independent professional judgment. The fact that a question is asked does not imply that any particular answer is desired or expected. Thank you for your clarification on this documentation. If you have any questions please call:[ ] * Thank you, [ ]EDUARDO RIZVIcolor maker dyer CARA
== END 2017-03-25 14:51 | disposition home or self-care (01) | DRG 683 ==
LOC: ED 15:35 → ERH 18:35 → 3RNO 19:48
PROVIDERS: ADMIT Internal Medicine Nephrology; ATTEND Internal Medicine Nephrology
DX: N17.9 Acute kidney failure, unspecified (principal); I50.22 Chronic systolic (congestive) heart failure; E11.9 Type 2 diabetes mellitus without complications; I11.0 Hypertensive heart disease with heart failure; E78.5 Hyperlipidemia, unspecified; R55 Syncope and collapse; D64.9 Anemia, unspecified; E86.1 Hypovolemia; E86.0 Dehydration; I25.10 Atherosclerotic heart disease of native coronary artery without angina pectoris; K52.9 Noninfective gastroenteritis and colitis, unspecified; H91.90 Unspecified hearing loss, unspecified ear; I71.4 Abdominal aortic aneurysm, without rupture; Z66 Do not resuscitate; D72.821 Monocytosis (symptomatic); Z85.46 Personal history of malignant neoplasm of prostate; I25.2 Old myocardial infarction; Z95.2 Presence of prosthetic heart valve; Z79.84 Long term (current) use of oral hypoglycemic drugs; Z85.828 Personal history of other malignant neoplasm of skin; Z87.891 Personal history of nicotine dependence; Z95.1 Presence of aortocoronary bypass graft

== ENCOUNTER 2017-04-11 14:20 | Observation (INO) | payer MEDICARE ==
[2017-04-11] MEDS ORDERED: Sodium Chloride 0.9% 500 ML IV STA (15:01)
--- NOTE | 2017-04-11 15:14 | ED PDOC ---
Arrival/HPI - General Chief Complaint: Dizziness/Lightheaded Time Seen by Provider: 04/11/17 14:46 Historian: Patient, Other (daughter) - History of Present Illness Narrative History of Present Illness (Text): 04/11/17 15:15 An 86 year old male, whose past medical history includes stroke and CHF with EF of 20%, presents to the emergency department complaining of blurred vision in left eye today, lightheadedness and increase in urination for the past week. Patient's daughter states she thinks he is dehydrated. Daughter reports patient went to Deportation Examiner office for follow up, who sent patient to emergency department. Patient notes symptoms feel similar to previous. Notes some back pain when standing for too long. Patient reports abdominal pain two days ago, currently resolved, and decrease in appetite but denies any chest pain, shortness of breath or any other complaints at this time. PMD: Dr. Dixon Deportation Examiner: Dr. Smiley Symptom Onset: Sudden Symptom Course: Unchanged Activities at Onset: Rest Context: Home Past Medical History - Provider Review Nursing Documentation Reviewed: Yes - Infectious Disease Hx of Infectious Diseases: None - Tetanus Immunization Tetanus Immunization: Unknown - Cardiac Hx Cardiac Disorders: Yes Hx Congestive Heart Failure: Yes Hx Hypertension: Yes - Pulmonary Hx Respiratory Disorders: No - Neurological Hx Neurological Disorder: Yes (Frequent Falls) Other/Comment: FREQUENT FALLS - HEENT Hx HEENT Disorder: No - Renal Hx Renal Disorder: No - Endocrine/Metabolic Hx Diabetes Mellitus Type 2: Yes - Hematological/Oncological Hx Blood Disorders: Yes Hx Cancer: Yes (PROSTATE & SKIN) Hx Shingles: Yes - Integumentary Hx Dermatological Disorder: Yes (Skin Cancer) Other/Comment: UNKNOWN SKIN CA - Musculoskeletal/Rheumatological Hx Musculoskeletal Disorders: Yes Hx Falls: Yes - Gastrointestinal Hx Gastrointestinal Disorders: Yes (chronic diarrhea) - Genitourinary/Gynecological Hx Genitourinary Disorders: Yes Hx Prostate Problems: Yes - Psychiatric Hx Psychophysiologic Disorder: No Hx Substance Use: No - Surgical History Hx Cardiac Catheterization: Yes Hx Coronary Stent: Yes Hx Open Heart Surgery: Yes (right carotid artery angio plasty left femeral artery) Hx Valve Replacement: Yes (aortic) - Suicidal Assessment Feels Threatened In Home Enviroment: No Family/Social History - Physician Review Nursing Documentation Reviewed: Yes Family/Social History: No Known Family HX Smoking Status: Former Smoker Hx Alcohol Use: No Hx Substance Use: No Allergies/Home Meds Allergies/Adverse Reactions: Allergies Iodinated Contrast- Oral and IV Dye Allergy (Verified 03/23/17 15:54) DIZZINESS iodine Allergy (Verified 03/23/17 15:54) DIZZINESS Home Medications: Home Meds Medication Instructions Recorded Confirmed Atorvastatin [Lipitor] 80 mg PO DAILY 04/11/17 04/11/17 Clopidogrel [Plavix] 75 mg PO DAILY 04/11/17 04/11/17 Furosemide [Lasix] 40 mg PO DAILY 04/11/17 04/11/17 Gemfibrozil 600 mg PO DAILY 04/11/17 04/11/17 Glipizide [Glipizide ER] 2.5 mg PO BID 04/11/17 04/11/17 Isosorbide Mononitrate [Imdur] 30 mg PO DAILY 04/11/17 04/11/17 Lisinopril [Zestril] 10 mg PO DIN 04/11/17 04/11/17 Metoprolol Succinate [Toprol XL] 100 mg PO DAILY 04/11/17 04/11/17 Review of Systems - Physician Review All systems were reviewed & negative as marked: Yes - Review of Systems Constitutional: Other (lightheadedness) Eyes: Other (blurred vision in left eye) Respiratory: absent: SOB Cardiovascular: absent: Chest Pain Gastrointestinal: Abdominal Pain, Appetite Changes Genitourinary Male: Other (increase in urination) Musculoskeletal: Back Pain Physical Exam Vital Signs Reviewed: Yes Vital Signs Temp Pulse Resp BP Pulse Ox 04/11/17 21:21 63 17 140/63 95 04/11/17 19:10 62 19 135/60 98 04/11/17 17:45 97.7 F 61 20 133/65 97 04/11/17 14:31 98.2 F 64 20 94/59 L 99 Appearance: Positive for: Well-Appearing, Non-Toxic, Comfortable Pain Distress: None Mental Status: Positive for: Alert and Oriented X 3 - Systems Exam Head: Present: Atraumatic, Normocephalic Pupils: Present: PERRL Extroacular Muscles: Present: EOMI Conjunctiva: Present: Normal Mouth: Present: Moist Mucous Membranes Neck: Present: Normal Range of Motion Respiratory/Chest: Present: Clear to Auscultation, Good Air Exchange. No: Respiratory Distress, Accessory Muscle Use Cardiovascular: Present: Regular Rate and Rhythm, Normal S1, S2. No: Murmurs Abdomen: Present: Normal Bowel Sounds. No: Tenderness, Distention, Peritoneal Signs Back: Present: Normal Inspection Upper Extremity: Present: Normal Inspection. No: Cyanosis, Edema Lower Extremity: Present: Normal Inspection. No: Edema Neurological: Present: GCS=15, CN II-XII Intact (w exception of superior visual field cut left eye which pt says is baseline), Speech Normal, Motor Func Grossly Intact, Normal Sensory Function, Other (no focal deficits) Skin: Present: Warm, Dry, Normal Color. No: Rashes Psychiatric: Present: Alert, Oriented x 3 Medical Decision Making ED Course and Treatment: 04/11/17 15:05 EKG: Ordered, reviewed, and independently interpreted the EKG. Rate : 61 BPM Rhythm : NSR Interpretation : left bundle branch block Comparison : appears similar to prior EKG on 03/23/17 04/11/17 16:55 CT HEAD WITHOUT CONTRAST Creator : Jaron Bone MD IMPRESSION: No acute intracranial findings 04/11/17 18:33 chest xray: Creator : Hyu Davis MD IMPRESSION: No active disease. No significant interval change compared to the prior examination(s). Disc w Dr Murillo who will admit- req call ophtho. 04/11/17 19:[address] Painting who rec call office tmw for outpt appt for further eval once the pt is wrked up for TIA and dc from hospital. - Lab Interpretations Lab Results: 04/11/17 15:51 04/11/17 15:51 Lab Results 04/11/17 15:51: Sodium 133, Potassium 4.1, Chloride 94 L, Carbon Dioxide 27, Anion Gap 16, BUN 50 H, Creatinine 1.6 H, Est GFR ( Amer) 50, Est GFR ( Non-Af Amer) 41, Random Glucose 107, Calcium 9.3, Total Bilirubin 1.0, AST 35, ALT 30, Alkaline Phosphatase 93, Troponin I 0.02, NT-Pro-B Natriuret Pep 981 H, Total Protein 7.5, Albumin 4.3, Globulin 3.2, Albumin/Globulin Ratio 1.3 04/11/17 15:51: WBC 9.5, RBC 3.22 L, Hgb 10.5 L, Hct 32.3 L, MCV 100.3, MCH 32.6 , MCHC 32.5, RDW 13.9, Plt Count 153, MPV 12.2 H, Gran % 61.6, Lymph % (Auto) 23.8, [place] % (Auto) 11.4 H, Eos % (Auto) 3.0, Baso % (Auto) 0.2, Gran # 5.83, Lymph # 2.3, [place] # 1.1 H, Eos # 0.3, Baso # 0.02 I have reviewed the lab results: Yes - RAD Interpretation Radiology Orders: 04/11/17 15:01 HEAD W/O CONTRAST [CT] Stat CHEST PORTABLE [RAD] Stat - EKG Interpretation Interpreted by ED Physician: Yes Type: 12 lead EKG - Medication Orders Current Medication Orders: Discontinued Medications Atorvastatin Calcium (Lipitor) 80 mg PO DAILY [facility] Last Admin: 04/13/17 10:12 Dose: 80 mg Clopidogrel Bisulfate (Plavix) 75 mg PO DAILY [facility] Last Admin: 04/13/17 10:12 Dose: 75 mg Furosemide (Lasix) 40 mg PO DAILY [facility] Gemfibrozil (Lopid) 600 mg PO DAILY [facility] Last Admin: 04/13/17 10:13 Dose: 600 mg Sodium Chloride (Sodium Chloride 0.9%) 500 mls @ 500 mls/hr IV .Q1H STA Stop: 04/11/17 16:00 Last Admin: 04/11/17 15:45 Dose: 500 mls/hr Insulin Human Regular (Humulin R Low) 0 units [facility] PRN Reason: Protocol Last Admin: 04/13/17 08:32 Dose: Not Given Non-Admin Reason: Blood Sugar Parameter Isosorbide Mononitrate (Imdur) 30 mg PO DAILY [facility] Last Admin: 04/13/17 10:12 Dose: 30 mg Lisinopril (Zestril) 10 mg PO DIN [facility] Last Admin: 04/12/17 17:23 Dose: Not Given Non-Admin Reason: BP Parameters Not Met Metoprolol Succinate (Toprol Xl) 100 mg PO DAILY [facility] Last Admin: 04/13/17 10:12 Dose: 100 mg NIHSS Stroke Scale 3 - Date/Time Evaluation Performed Date Performed: 04/11/17 Time Performed: 15:00 When Was NIHSS Performed: Baseline - How Severe is the Stroke Level of Consciousness: 0=Alert LOC to Questions: 0=Both comments correct LOC to commands: 0=Obeys both correctly Best Gaze: 0=Normal Visual: 0=No visual loss Facial: 0=Normal Motor Arm - Left: 0=No drift Motor Arm - Right: 0=No drift Motor Leg - Left: 0=No drift Motor Leg - Right: 0=No drift Limb Ataxia: 0=Absent Sensory: 0=Normal Best Language: 0=No aphasia Dysarthia: 0=Normal articulation Extinction & Inattention (Neglect): 0=Normal, no object Score: 0 - Scribe Statement The provider has reviewed the documentation as recorded by the Phyllis Self Provider Scribe Attestation: All medical record entries made by the Scribe were at my direction and personally dictated by me. I have reviewed the chart and agree that the record accurately reflects my personal performance of the history, physical exam, medical decision making, and the department course for this patient. I have also personally directed, reviewed, and agree with the discharge instructions and disposition. Disposition/Present on Arrival - Present on Arrival Any Indicators Present on Arrival: Yes History of DVT/PE: Yes History of Uncontrolled Diabetes: Yes Urinary Catheter: No History of Decub. Ulcer: No History Surgical Site Infection Following: CABG - Mediastinitis - Disposition Have Diagnosis and Disposition been Completed?: Yes Diagnosis: TIA (transient ischemic attack), Near syncope Disposition: HOSPITALIZED Disposition Time: 17:20 Condition: STABLE
[2017-04-11 15:56] LABS: BASO # 0.02 K/mm3 (0.0-2.0); BASO % 0.2 % (0.0-3.0); EOS # 0.3 (0.0-0.7); GRAN # 5.83 (1.4-6.5); GRAN % 61.6 % (50.0-68.0); HEMOGLOBIN 10.5 g/dL (14.0-18.0); LYMPH # 2.3 (1.2-3.4); LYMPH % 23.8 % (22.0-35.0); MEAN CELL VOLUME 100.3 fl (80.0-105.0); MEAN CORPUSCULAR HEMOGLOBIN 32.6 pg (25.0-35.0); MEAN CORPUSCULAR HGB CONC 32.5 g/dl (31.0-37.0); MEAN PLATELET VOLUME 12.2 fl (7.0-11.0); MONO # 1.1 (0.1-0.6); MONO % 11.4 % (1.0-6.0); PLATELET COUNT 153 10^3/uL (120.0-450.0); RBC 3.22 10^6/uL (3.5-6.1); RED CELL DISTRIBUTION WIDTH 13.9 % (11.5-14.5); WHITE BLOOD COUNT 9.5 10^3/ul (4.5-11.0)
[2017-04-11 16:06] LABS: ALB/GLOB RATIO 1.3 (1.1-1.8); ALBUMIN 4.3 g/dL (3.0-4.8); CALCIUM 9.3 mg/dL (8.4-10.5)
[2017-04-11 16:35] LABS: TROPONIN I 0.02 ng/mL
--- NOTE | 2017-04-11 16:52 | CT ---
PROCEDURE: CT HEAD WITHOUT CONTRAST. HISTORY: near syncope visual changes COMPARISON: 03/23/2017 TECHNIQUE: Axial computed tomography images were obtained through the head/brain without intravenous contrast. Radiation dose: Total exam DLP = 774 mGy-cm. This CT exam was performed using one or more of the following dose reduction techniques: Automated exposure control, adjustment of the mA and/or kV according to patient size, and/or use of iterative reconstruction technique. FINDINGS: HEMORRHAGE: No intracranial hemorrhage. BRAIN: No mass effect or edema. No atrophy or chronic microvascular ischemic changes. VENTRICLES: Unremarkable. No hydrocephalus. CALVARIUM: Unremarkable. PARANASAL SINUSES: Unremarkable as visualized. No significant inflammatory changes. MASTOID AIR CELLS: Unremarkable as visualized. No inflammatory changes. OTHER FINDINGS: None. IMPRESSION: No acute intracranial findings
--- NOTE | 2017-04-11 18:31 | RAD ---
HISTORY: near syncope COMPARISON: 03/23/2017 FINDINGS: LUNGS: No active pulmonary disease. PLEURA: No significant pleural effusion identified, no pneumothorax apparent. CARDIOVASCULAR: Cardiomegaly. No evidence of acute, significant cardiovascular disease. Incidental Finding(s): Postoperative changes related to sternotomy. OSSEOUS STRUCTURES: No significant abnormalities. VISUALIZED UPPER ABDOMEN: Normal. OTHER FINDINGS: None. IMPRESSION: No active disease. No significant interval change compared to the prior examination(s). No preliminary report provided by emergency department personnel.
[2017-04-11 20:57] LABS: URINE BILIRUBIN NEGATIVE (NEGATIVE); URINE BLOOD NEGATIVE (NEGATIVE); URINE GLUCOSE (UA) NEGATIVE (NEGATIVE); URINE LEUKOCYTE ESTERASE NEGATIVE Leu/uL (NEGATIVE); URINE NITRATE NEGATIVE (NEGATIVE); URINE PROTEIN NEGATIVE mg/dL (<30 mg/dL); URINE UROBILINOGEN 0.2 E.U./dL (<1 E.U./dL)
[2017-04-11 21:11] LABS: URINE APPEARANCE CLEAR (CLEAR); URINE COLOR YELLOW (YELLOW)
[2017-04-12 01:47] VITALS: BMI 25.2
[2017-04-12] MEDS: Insulin Reg-LOW-Coverage SC SCH ×5 (07:59→23:39)
[2017-04-12] MEDS: Metoprolol Succinate 100 mg XL Tab PO SCH (10:24)
--- NOTE | 2017-04-12 13:03 | CP.PCM.CON ---
<Ken Brower - Last Filed: 04/12/17 16:55> History of Present Illness - History of Present Illness History of Present Illness: Neurology Consult Note for Dr. Curtis 86 y/o M with PMH of CAD, CABG, DM2, dyslipidemia, HTN, prostate, and skin cancer presents to the ED for sudden onset of blurred vision and dehydration. Pt was initially accompanied to the hospital with his daughter who states the patient has had increased urinary output. According to the patient, he has been tracking his in's and out's over the last week and he has noticed that he has been urinating a lot more than he was taking in. Also, when visiting his GI doctor this past week, he was told he was on two diuretics when he was only only suppose to be on one. Pt currently has no complaints at this time. Denies CP, SOB, N/V/D, fevers, chills, lightheadedness, syncope, headaches. PMH: CAD, CABG, DM2, dyslipidemia, HTN, prostate, and skin cancer FMH: Noncontributory Social Hx: Hx of tobacco use, denies alcohol or illicit drug use Allergies: Iodine Medications: Reviewed, as per MAR Review of Systems - Constitutional Constitutional: Fatigue. absent: Chills, Fever - EENT Eyes: Blurred Vision, Change in Vision - Cardiovascular Cardiovascular: absent: Chest Pain, Irregular Heart Rhythm - Respiratory Respiratory: absent: Cough, Dyspnea - Gastrointestinal Gastrointestinal: absent: Diarrhea, Nausea, Vomiting - Genitourinary Genitourinary: absent: Dysuria, Pyuria - Hematologic/Lymphatic Hematologic: absent: Easy Bleeding, Easy Bruising Past Patient History - Infectious Disease Hx of Infectious Diseases: None - Tetanus Immunizations Tetanus Immunization: Unknown - Past Social History Smoking Status: Former Smoker - CARDIAC Hx Cardiac Disorders: Yes Hx Angina: No Hx Cardia Arrhythmia: Yes Hx Circulatory Problems: No Hx Congestive Heart Failure: Yes Hx Heart Murmur: No Hx Heart Transplant: No Hx Hypercholesterolemia: Yes Hx Hypertension: Yes Hx Internal Defibrillator: No Hx Mitral Valve Prolapse: No Hx Pacemaker: No Hx Peripheral Edema: No Hx Peripheral Vascular Disease: No - PULMONARY Hx Respiratory Disorders: No - NEUROLOGICAL Hx Neurological Disorder: Yes (Frequent Falls) Other/Comment: FREQUENT FALLS - HEENT Hx HEENT Problems: No - RENAL Hx Chronic Kidney Disease: No - ENDOCRINE/METABOLIC Hx Diabetes Mellitus Type 2: Yes - HEMATOLOGICAL/ONCOLOGICAL Hx Blood Disorders: Yes Hx Cancer: Yes (PROSTATE & SKIN) Hx Shingles: Yes - INTEGUMENTARY Hx Dermatological Problems: Yes (Skin Cancer) Other/Comment: UNKNOWN SKIN CA - MUSCULOSKELETAL/RHEUMATOLOGICAL Hx Falls: Yes - GASTROINTESTINAL Hx Gastrointestinal Disorders: Yes (chronic diarrhea) - GENITOURINARY/GYNECOLOGICAL Hx Genitourinary Disorders: Yes Hx Prostate Problems: Yes - PSYCHIATRIC Hx Substance Use: No - SURGICAL HISTORY Hx Cardiac Catheterization: Yes Hx Coronary Stent: Yes Meds Allergies/Adverse Reactions: Allergies Allergy/AdvReac Type Severity Reaction Status Date / Time Iodinated Contrast- Oral and Allergy DIZZINESS Verified 03/23/17 15:54 IV Dye iodine Allergy DIZZINESS Verified 03/23/17 15:54 - Medications Medications: Current Medications Atorvastatin Calcium (Lipitor) 80 mg PO DAILY [facility] Last Admin: 04/12/17 10:24 Dose: 80 mg Clopidogrel Bisulfate (Plavix) 75 mg PO DAILY [facility] Last Admin: 04/12/17 10:24 Dose: 75 mg Furosemide (Lasix) 40 mg PO DAILY [facility] Gemfibrozil (Lopid) 600 mg PO DAILY [facility] Last Admin: 04/12/17 10:24 Dose: 600 mg Insulin Human Regular (Humulin R Low) 0 units SC [facility] PRN Reason: Protocol Last Admin: 04/12/17 12:11 Dose: Not Given Isosorbide Mononitrate (Imdur) 30 mg PO DAILY [facility] Last Admin: 04/12/17 10:25 Dose: Not Given Lisinopril (Zestril) 10 mg PO DIN [facility] Metoprolol Succinate (Toprol Xl) 100 mg PO DAILY [facility] Last Admin: 04/12/17 10:24 Dose: Not Given Physical Exam - Constitutional Appears: Well, No Acute Distress - Head Exam Head Exam: ATRAUMATIC, NORMAL INSPECTION, NORMOCEPHALIC - Eye Exam Eye Exam: EOMI, PERRL - ENT Exam ENT Exam: Mucous Membranes Moist - Neck Exam Neck exam: Positive for: Normal Inspection. Negative for: Lymphadenopathy - Respiratory Exam Respiratory Exam: Clear to Auscultation Bilateral, NORMAL BREATHING PATTERN. absent: Rales, Rhonchi, Wheezes - Cardiovascular Exam Cardiovascular Exam: RRR, +S1, +S2 - GI/Abdominal Exam GI & Abdominal Exam: Normal Bowel Sounds, Soft. absent: Tenderness - Extremities Exam Extremities exam: Positive for: normal inspection. Negative for: calf tenderness, pedal edema - Neurological Exam Neurological exam: Alert, CN II-XII Intact, Oriented x3 - Psychiatric Exam Psychiatric exam: Normal Affect, Normal Mood - Skin Skin Exam: Intact, Normal Color, Warm Results - Vital Signs Recent Vital Signs: Last Vital Signs Temp 99.2 F 04/12/17 05:52 Pulse 67 04/12/17 10:24 Resp 20 04/12/17 05:52 BP 96/57 L 04/12/17 10:24 Pulse Ox 99 04/12/17 05:52 - Labs Result Diagrams: 04/11/17 15:51 04/11/17 15:51 Labs: Laboratory Results - last 24 hr 04/11/17 04/12/17 04/12/17 20:10 07:06 11:15 POC Glucose (mg/dL) 150 H 158 H Urine Color Yellow Urine Appearance Clear Urine pH 6.0 Ur Specific Blanch 1.010 Urine Protein Negative Urine Glucose (UA) Negative Urine Ketones Negative Urine Blood Negative Urine Nitrate Negative Urine Bilirubin Negative Urine Urobilinogen 0.2 Ur Leukocyte Esterase Negative Assessment & Plan - Assessment and Plan (Free Text) Plan: 86 y/o M with PMH of CAD, CABG, DM2, dyslipidemia, HTN, prostate, and skin cancer presents with near syncope secondary to transient cerebral hypoperfusion due to dehydration in the setting of cardiomyopathy. Pt is on two diuretics at home which may have contributed to his dehydrated state. Pt should undergo echocardiogram to evaluate LV function in the setting of an increased BNP. Plan: Carotid Dopplers b// Avoid overuse of diuretics Orthostatic BP normal Adequate oral hydration Monitor electrolytes Keep SBP >120 Avoid sedative medications Inocente PGY-2 <Hans Curtis - Last Filed: 04/12/17 17:07> Meds - Medications Medications: Current Medications Atorvastatin Calcium (Lipitor) 80 mg PO DAILY [facility] Last Admin: 04/12/17 10:24 Dose: 80 mg Clopidogrel Bisulfate (Plavix) 75 mg PO DAILY [facility] Last Admin: 04/12/17 10:24 Dose: 75 mg Furosemide (Lasix) 40 mg PO DAILY [facility] Gemfibrozil (Lopid) 600 mg PO DAILY [facility] Last Admin: 04/12/17 10:24 Dose: 600 mg Insulin Human Regular (Humulin R Low) 0 units SC [facility] PRN Reason: Protocol Last Admin: 04/12/17 12:11 Dose: Not Given Isosorbide Mononitrate (Imdur) 30 mg PO DAILY [facility] Last Admin: 04/12/17 10:25 Dose: Not Given Lisinopril (Zestril) 10 mg PO DIN [facility] Metoprolol Succinate (Toprol Xl) 100 mg PO DAILY [facility] Last Admin: 04/12/17 10:24 Dose: Not Given Results - Vital Signs Recent Vital Signs: Last Vital Signs Temp 97.5 F L 04/12/17 12:00 Pulse 60 04/12/17 14:00 Resp 18 04/12/17 12:00 BP 121/60 04/12/17 12:00 Pulse Ox 99 04/12/17 05:52 - Labs Result Diagrams: 04/11/17 15:51 04/11/17 15:51 Labs: Laboratory Results - last 24 hr 04/11/17 04/12/17 04/12/17 20:10 07:06 11:15 POC Glucose (mg/dL) 150 H 158 H Urine Color Yellow Urine Appearance Clear Urine pH 6.0 Ur Specific Blanch 1.010 Urine Protein Negative Urine Glucose (UA) Negative Urine Ketones Negative Urine Blood Negative Urine Nitrate Negative Urine Bilirubin Negative Urine Urobilinogen 0.2 Ur Leukocyte Esterase Negative Attending/Attestation - Attestation I have personally seen and examined this patient.: Yes I have fully participated in the care of the patient.: Yes I have reviewed all pertinent clinical information: Yes
--- NOTE | 2017-04-12 15:49 | CON ---
DATE: 04/12/2017 INDICATIONS: Dizziness and blurred vision. HISTORY OF PRESENT ILLNESS: This is an 86-year-old man seen for the first time with an extensive cardiac history. 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 He has known coronary artery disease, remote myocardial infarction, coronary bypass surgery with aortic valve replacement and known severe LV dysfunction. He has had episodes of congestive heart failure. He has been offered an ICD but has refused this and he states that he wishes to be DNR and DNI. There is a history of hypertension, diabetes, mesenteric ischemia, syncope, anemia, abdominal aortic aneurysm, stroke, cerebrovascular disease. He is a former smoker. PAST MEDICAL HISTORY: Currently, he denies any chest pain or shortness of breath. He does say that he was recently hospitalized down the [facility] [place] with congestive heart failure. He was placed on an additional diuretic and believes that his symptoms may be related to over diuresis. There is no orthopnea, PND, syncope, presyncope, vertigo, cough, sputum production, hemoptysis, abdominal pain, nausea, vomiting, diarrhea, constipation or melena. MEDICATIONS: At the time of admission include atorvastatin, Plavix, Lasix 40 mg daily, Lopid, glipizide, Imdur, Zestril-HCT and metoprolol. ALLERGIES: HE NOTES AN ALLERGY TO IODINATED CONTRAST. SOCIAL HISTORY: He lives at home. He is . He does not smoke or drink. FAMILY HISTORY: Noncontributory. REVIEW OF SYSTEMS: A 10-point review of systems otherwise unremarkable except as noted above. PHYSICAL EXAMINATION: GENERAL: He is a well-developed, elderly male, lying in bed on telemetry in no acute distress. VITAL SIGNS: He is in sinus rhythm. He is afebrile. Blood pressure 106/46, pulse 68 to 72, respirations 17 to 20, O2 sats 95% to 99% on room air. HEENT: Reveals soft carotid bruit bilaterally. No thyromegaly, good carotid upstrokes. LUNGS: Lungs alejandro clear. HEART: Normal first and second heart sounds. Systolic murmur along the left sternal border and in the aortic space. PMI displaced laterally. ABDOMEN: Soft, bowel sounds present. No mass, organomegaly, tenderness, rebound, guarding. CVA tenderness. I did not palpable the abdominal aortic aneurysm. EXTREMITIES: Reveals no cyanosis, clubbing, or edema. NEUROLOGIC: He is awake, alert, oriented and intact. SKIN: Warm and dry. No rash or cellulitis. PSYCHIATRIC: Normal as to mood and affect. LABORATORY AND IMAGING DATA: A portable chest x-ray reveals no active disease. No change from the prior study. A CT of the head reveals no acute findings. Hemoglobin 10.5, hematocrit 32.3, white count normal, platelet count normal, electrolytes normal, BUN 50, creatinine 1.6, blood sugar 150, LFTs unremarkable, troponin 0.02, and BNP 981. Urinalysis unremarkable. IMPRESSION: Flash Chun is an 86-year-old man admitted with dizziness, blurring of vision in the left eye. His has had recent admission to [facility] for congestive heart failure. His medications were adjusted and he is on increased diuretic according to his history; I do not have records of that admission or prior records of his cardiac care. PLAN: At this time, I agree with current plans. He will have a neurologic evaluation. I will check his postural vital signs. I will order an echocardiogram. I will continue his current medications except perhaps discontinuing hydrochlorothiazide in favor of daily Lasix. He is on lisinopril, metoprolol. Plavix, Lopid, Lipitor, isosorbide, and insulin coverage. His is on telemetry. He can be out of bed. He states that he is a DNR/DNI status, but this is not yet recorded in the records. He has declined a defibrillator in the past. I will follow along with you. I will make additional recommendations based on his clinical course. Hossein Gomez MD [facility]
--- NOTE | 2017-04-12 21:09 | US ---
PROCEDURE: Bilateral carotid artery duplex ultrasound HISTORY: Carotid stenosis dizziness PHYSICIAN(S): Moshe Johnson MD. TECHNIQUE: Duplex sonography and color-flow Doppler were used to evaluate the carotid bifurcations and limited segments of the vertebral arteries bilaterally. FINDINGS: There is mild to moderate heterogeneous echogenic plaque, greater on the left than the right, noted at the carotid bifurcations bilaterally. The peak systolic velocity in the proximal right internal carotid artery is 112 cm/sec. This corresponds to a 40-59 percent proximal right ICA stenosis. Normal systolic velocities are noted in the proximal right external carotid artery. There is antegrade flow in the small right vertebral artery. The peak systolic velocity in the proximal left internal carotid artery is 126 cm/sec. This corresponds to a 40-59 percent proximal left ICA stenosis. Moderately elevated systolic velocities are noted in the proximal left external carotid artery. There is antegrade flow in the small left vertebral artery. IMPRESSION: 1. Bilateral 40-59 percent proximal ICA stenoses. 2. Antegrade flow in both small vertebral arteries.
--- NOTE | 2017-04-12 23:57 | CARD ---
APPROVED REPORT EKG Measurement Heart [id number] <Conclusion> Sinus rhythm with 1st degree AV block Left bundle branch block Abnormal ECG
--- NOTE | 2017-04-13 04:49 | HP ---
CHIEF COMPLAINT AND HISTORY OF PRESENT ILLNESS: This is an 86-year-old male who is coming into the hospital with past medical history of diabetes type 2, hypotension, dyslipidemia and coronary artery disease. He was complaining of blurred vision and he was having dizziness. The patient stated that he does have a history of heart problems and apparently has an EF of about 20%. He says he is having blurred vision in the left eye with lightheadedness. He is also urinating more, but he had diuretic therapy. He says that he became dehydrated from using diuretics in the past. The patient's daughter was at the bedside. The patient was going to their cellophane worker to follow up, but was sent to the ER for further evaluation. He states he does feel better. He has no complaints of any chest pain. No shortness of breath, no nausea and no vomiting. No dysuria, no frequency and no nocturia. No weakness in the arms or the legs. REVIEW OF SYSTEMS: All the review of systems are within normal limits except what is mentioned. ALLERGIES: IODINATED CONTRAST. PAST MEDICAL HISTORY: 1. Coronary artery disease, status post CABG. 2. Mesenteric ischemia. 3. Dyslipidemia. 4. Diabetes type 2. 5. Hearing impairment. 6. Hypotension. 7. Prostate cancer. 8. Skin cancer. SOCIAL HISTORY: He does have a history of smoking, but quit. He denies alcohol or drug use. FAMILY HISTORY: Noncontributory. PHYSICAL EXAMINATION VITAL SIGNS: Temperature is 99.2, pulse is 72 and blood pressure is 106/46. The patient's lying blood pressure is 99/54 and standing blood pressure is 93/56. O2 saturation is 99%. Repeat blood pressure is 131/54. Height is 5 feet 4 inches. Weight is 143 pounds. BMI is 24. GENERAL: The patient lying in bed, uncomfortable, and in no acute distress. HEENT: Atraumatic and normocephalic. Anicteric sclerae. Moist mucosa. Shell conjunctivae. No oral lesions. NECK: No JVD, anterior and posterior adenopathy, thyromegaly, or bruits. CARDIOVASCULAR: S1 and S2 regular. No murmur, rubs, or gallop. LUNGS: Clear to auscultation bilaterally. No wheezes, rales, or rhonchi. ABDOMEN: Bowel sounds are positive. Soft, nontender and nondistended. No hepatosplenomegaly. No rebound and no guarding EXTREMITIES: No cyanosis, clubbing, or edema. NEUROLOGIC: No facial asymmetry. Tongue is midline. No vulva deviation. Power is 5/5 upper extremity and lower extremity. Sensation intact in upper extremity and lower extremity. PSYCHIATRIC: She is awake, alert and oriented x3. No anxiety or depression. She has normal affect. GENITOURINARY: No CVA tenderness. VASCULAR: 2+ pulses in the carotid pulses and pedal pulses. SKIN: No erythema or nodules SPINE: Shows normal curvature. EXTREMITIES: No Cyanosis and clubbing, no edema. LABORATORY DATA: White count of 9.5, hemoglobin 10.5 and plate count 153. Chemistry shows a creatinine of 1.6. The patient's baseline is about 1.6. Troponin is 0.02. Urine shows ketones are negative, blood is negative, nitrites are negative. Chest x-ray done shows no active disease. CT of the head done shows no active disease, no intracranial abnormalities. EKG done shows sinus rhythm. There is a left bundle branch block and inverted Qs in II, III and aVF. ASSESSMENT 1. Dizziness secondary to hypovolemia, improved. 2. Chronic kidney disease, stage III. 3. Coronary artery disease, status post coronary artery bypass graft. 4. Probable cardiomyopathy. 5. Diabetes type 2. 6. Hypotension. 7. Dyslipidemia. 8. DNR/DNI. PLAN: The patient is currently comfortable. He has been admitted to the hospital. He had a carotid ultrasound done in [place]. I will have neuro and cardiology evaluate the patient. I did speak to Dr. Gomez regarding the case. The patient most likely has CHF secondary to systolic dysfunction that is chronic. He is on his lisinopril. He is on Lipitor for dyslipidemia. He is on Lasix daily. He is on isosorbide. He was given fluids in the ER. I did speak to the patient's daughter to give her an update on the patient's diagnosis and plan of care. Forest Murillo MD
[2017-04-13 05:21] LABS: HEMOGLOBIN 10.9 g/dL (14.0-18.0); MEAN CELL VOLUME 100.9 fl (80.0-105.0); MEAN CORPUSCULAR HEMOGLOBIN 33.1 pg (25.0-35.0); MEAN CORPUSCULAR HGB CONC 32.8 g/dl (31.0-37.0); MEAN PLATELET VOLUME 12.1 fl (7.0-11.0); RBC 3.29 10^6/uL (3.5-6.1); RED CELL DISTRIBUTION WIDTH 13.8 % (11.5-14.5); WHITE BLOOD COUNT 5.8 10^3/ul (4.5-11.0)
[2017-04-13 05:44] LABS: ALB/GLOB RATIO 1.2 (1.1-1.8); ALBUMIN 3.6 g/dL (3.0-4.8); ALT/SGPT 21 U/L (7-56); AST/SGOT 29 U/L (15-59); BLOOD UREA NITROGEN 33 mg/dL (7-21); CALCIUM 9.2 mg/dL (8.4-10.5); GFR AFRICAN-AMERICAN > 60; GFR NON-AFRICAN AMERICAN > 60
[2017-04-13 06:19] VITALS: RESP 18; TEMP 97.8; O2SAT 93
[2017-04-13] MEDS: Insulin Reg-LOW-Coverage SC SCH (08:32)
--- NOTE | 2017-04-13 09:32 | CARD ---
APPROVED REPORT EXAM: Two-dimensional and M-mode echocardiogram with Doppler and color Doppler. INDICATION LV Function:SystolicDiastolic NEAR SYNCOPE 2D DIMENSIONS Left Atrium (2D)4.6 (1.6-4.0cm)IVSd1.1 (0.7-1.1cm) LVDd5.4 (3.9-5.9cm)PWd1.2 (0.7-1.1cm) LVDs4.8 (2.5-4.0cm)FS (%) 10.3 % LVEF (%)22.3 (>50%) M-Mode DIMENSIONS Aortic Root2.10 (2.2-3.7cm) Aortic Valve AoV Peak Rjqqifwy246.0cm/Foster Peak GR.20mmHg Mitral Valve E/A ratio0.0 TDI Lateral E' Peak V10.70cm/sMedial E' Peak V7.21cm/sE/Lateral E'0.0 E/Medial E'0.0 Tricuspid Valve TR Peak [id number]/sRAP [id number] Peak Gr.26mmHg [id number] LEFT VENTRICLE The left ventricle is normal size. There is mild concentric left ventricular hypertrophy. The systolic function is moderately to severely impaired. Septal motion consistent with post-operative state. There is global hypokinesis of the left ventricle. RIGHT VENTRICLE The right ventricle is normal size. The right ventricular systolic function is normal. ATRIA The left atrium is moderately dilated. The right atrium is mildly dilated. The interatrial septum is intact with no evidence for an atrial septal defect. AORTIC VALVE There are normal prosthetic aortic valve gradients. There is a bioprosthetic aortic valve prosthesis. MITRAL VALVE Mitral annular calcification is moderate. The mitral valve is moderately thickened. Mitral regurgitation is moderate. TRICUSPID VALVE The tricuspid valve is normal in structure. There is moderate tricuspid regurgitation. PULMONIC VALVE The pulmonary valve is normal in structure. GREAT VESSELS The aortic root is normal in size. The IVC is normal in size and collapses >50% with inspiration. PERICARDIAL EFFUSION There is no pleural effusion. There is no pericardial effusion. <Conclusion> Biatrial enlargement. Normal LV size. Mild concentric LVH. Moderate to severely reduced LV systolic function with global hypokinesis and septal dyskinesis. Normally functioning aortic bioprosthesis. Moderate MR and TR.
[2017-04-13 10:11] VITALS: BP 132/66; PULSE 71
[2017-04-13] MEDS: Metoprolol Succinate 100 mg XL Tab PO SCH (10:12)
--- NOTE | 2017-04-13 13:47 | PN ---
DATE: 04/13/2017 SUBJECTIVE: The patient is seen lying in bed on telemetry. He states he is comfortable. He denies any chest pain or dyspnea present. He has had no lightheadedness. CURRENT MEDICATIONS: Include Imdur 30 mg daily, Lasix 40 mg daily, Lipitor 80 mg daily, Lopid 600 mg daily, Plavix 75 mg daily, Toprol-XL 100 mg daily, and Zestril 10 mg daily. OBJECTIVE: GENERAL: He is a very elderly male, appears comfortable at the present time. VITAL SIGNS: His blood pressure is 132/66 with a pulse of 70 and sinus, respirations are 16, and he is afebrile. HEENT: No JVD. CHEST: Few scattered rhonchi heard. HEART: PMI displaced laterally with soft tones noted and systolic murmur present at the left sternal border. ABDOMEN: Soft and nontender with normoactive bowel sounds. EXTREMITIES: No edema. DIAGNOSTIC DATA: Potassium 4.4, BUN and creatinine 33 and 1.1, hemoglobin and hematocrit 10.9 and 33.2 with white count of 5.8, and platelet count 140,000. Echocardiogram was reviewed showing normally functioning aortic bioprosthesis, biatrial enlargement, mild concentric LVH with lnkkcgoj-lb-qcznyw with LV systolic function and moderate mitral and tricuspid regurgitation. Carotid ultrasound revealed mild bilateral ICA stenosis. IMPRESSION: 1. Recent dizziness possible due to prerenal azotemia. 2. Coronary artery disease, status post prior bypass surgery, clinically stable. 3. Status post aortic valve replacement with normal function. 4. Kouveccr-te-qgekng left ventricular systolic dysfunction. 5. Chronic renal insufficiency. RECOMMENDATIONS: From a cardiac standpoint, his current medication appears appropriate and he appears stable for discharge at this time. He can follow up with his primary us marketing director as an outpatient. Continue sodium restriction was advised. Joseph Hwang MD
--- NOTE | 2017-04-13 20:50 | CP.PCM.PN ---
<Ken Brower - Last Filed: 04/13/17 20:46> Subjective - Date & Time of Evaluation Date of Evaluation: 04/13/17 Time of Evaluation: 20:46 - Subjective Subjective: Progress Note for Dr. Curtis Pt seen and examined at bedside. No acute complaints overnight. Pt states he is doing well at night. Denies CP, N/V/D, SOB, syncope, dizziness. Objective - Vital Signs/Intake and Output Vital Signs (last 24 hours): Temp Pulse Resp BP Pulse Ox 97.8 F 71 18 132/66 93 L 04/13/17 06:00 04/13/17 10:12 04/13/17 06:00 04/13/17 10:12 04/13/17 06:00 - Labs Labs: 04/13/17 04:46 04/13/17 04:46 - Constitutional Appears: Well, No Acute Distress - Head Exam Head Exam: ATRAUMATIC, NORMAL INSPECTION, NORMOCEPHALIC - ENT Exam ENT Exam: Mucous Membranes Moist - Respiratory Exam Respiratory Exam: Clear to Ausculation Bilateral, NORMAL BREATHING PATTERN. absent: Rales, Rhonchi, Wheezes - Cardiovascular Exam Cardiovascular Exam: RRR, +S1, +S2 - GI/Abdominal Exam GI & Abdominal Exam: Soft, Normal Bowel Sounds. absent: Tenderness - Extremities Exam Extremities Exam: Normal Inspection. absent: Calf Tenderness, Pedal Edema - Neurological Exam Neurological Exam: Alert, Awake. absent: Oriented x3 - Psychiatric Exam Psychiatric exam: Normal Affect, Normal Mood - Skin Skin Exam: Intact, Normal Color, Warm Assessment and Plan - Assessment and Plan (Free Text) Plan: 86 y/o M with PMH of CAD, CABG, DM2, dyslipidemia, HTN, prostate, and skin cancer presents with near syncope secondary to transient cerebral hypoperfusion due to dehydration in the setting of cardiomyopathy. Pt receieved carotid dopplers which showed 40-59% stenosis b/l. Pt is neurologically stable and will sign off at this time. Plan: Avoid overuse of diuretics Adequate oral hydration Monitor electrolytes Keep SBP >120 Avoid sedative medications Inocente PGY-2 <Hans Curtis - Last Filed: 04/13/17 22:43> Objective - Vital Signs/Intake and Output Vital Signs (last 24 hours): Temp Pulse Resp BP Pulse Ox 97.8 F 71 18 132/66 93 L 04/13/17 06:00 04/13/17 10:12 04/13/17 06:00 04/13/17 10:12 04/13/17 06:00 - Labs Labs: 04/13/17 04:46 04/13/17 04:46 Attending/Attestation - Attestation I have personally seen and examined this patient.: Yes I have fully participated in the care of the patient.: Yes I have reviewed all pertinent clinical information, including history, physical exam and plan: Yes
--- NOTE | 2017-04-14 04:23 | DS ---
SUBJECTIVE: The patient has no complaints of any chest pain. No shortness of breath. He was initially admitted to the hospital because of some dizziness and left eye visual disturbance. He said it is improved. He does have a history of cardiomyopathy and coronary artery disease, status post CABG. He has been seen another heating and ventilating worker outside the area. I did speak to the patient's daughter yesterday to give an update on the patient's diagnoses and plan of care. The patient is going to be discharge home today. He has complaints of no chest pain, shortness of breath or headache. PHYSICAL EXAMINATION: VITAL SIGNS: Temperature is 97.8, pulse is 74, blood pressure is 110/51, and respirations are 18. GENERAL: The patient is lying in bed, flat, comfortable. HEENT: No oral lesion. Anicteric sclerae. Moist mucosa. NECK: No JVD, adenopathy, or thyromegaly. CARDIOVASCULAR: S1 and S2, regular. No murmurs, rubs, or gallops. LUNGS: Clear to auscultation bilaterally. No wheeze, rales, or rhonchi. ABDOMEN: Bowel sounds are positive, soft, nontender and nondistended. EXTREMITIES: no cyanosis, clubbing or edema. Carotid ultrasound done shows a bilateral 40%-59% proximal ICA stenosis. ASSESSMENT: 1. Dizziness secondary to hypovolemia, resolved. 2. Chronic kidney disease, stage III. 3. Cardiomyopathy. 4. Coronary artery disease, status post coronary artery bypass grafting. 5. Diabetes type 2. 6. Dyslipidemia. 7. Hypertension. 8. DO NOT RESUSCITATE/DO NOT INTUBATE. PLAN: The patient is on isosorbide for his coronary artery disease. He is on Lasix daily. He is on Lipitor for dyslipidemia. He is on Plavix daily. He is on Zestril for his hypertension. He is on carbohydrate consistent diet. He is going to be discharge home to followup. I did advise him to hold off on his hydrochlorothiazide medication as this may be too much for him to handle. I will continue his lisinopril. I did advise him to followup with his heating and ventilating worker to discuss further management regarding his cardiac condition and his medications. I think combination of the Lasix and hydrochlorothiazide may be too much causing him dizziness. Forest Murillo MD [facility] # [id number]
== END 2017-04-13 12:20 | disposition home or self-care (01) ==
LOC: ED 14:20 → ERH 17:20 → 2RSO 23:47
PROVIDERS: ADMIT Internal Medicine Nephrology; ATTEND Internal Medicine Nephrology
DX: E86.1 Hypovolemia (principal); E86.0 Dehydration; I50.9 Heart failure, unspecified; H53.8 Other visual disturbances; I25.10 Atherosclerotic heart disease of native coronary artery without angina pectoris; H53.9 Unspecified visual disturbance; E78.5 Hyperlipidemia, unspecified; H91.90 Unspecified hearing loss, unspecified ear; N18.3 Chronic kidney disease, stage 3 (moderate); E11.22 Type 2 diabetes mellitus with diabetic chronic kidney disease; I13.0 Hypertensive heart and chronic kidney disease with heart failure and stage 1 through stage 4 chronic kidney disease, or unspecified chronic kidney disease; I42.9 Cardiomyopathy, unspecified; I25.2 Old myocardial infarction; Z66 Do not resuscitate; Z85.46 Personal history of malignant neoplasm of prostate; Z85.828 Personal history of other malignant neoplasm of skin; Z95.1 Presence of aortocoronary bypass graft; Z86.73 Personal history of transient ischemic attack (TIA), and cerebral infarction without residual deficits; Z87.891 Personal history of nicotine dependence; Z95.2 Presence of prosthetic heart valve; Z95.5 Presence of coronary angioplasty implant and graft; Z79.02 Long term (current) use of antithrombotics/antiplatelets
CPT/HCPCS: 36415; 70450; 71010; 80053; 81003; 82948; 83880; 84484; 85025; 85027; 87086; 93005; 93306; 93880; 96360; 99285; G0378; J7040

== ENCOUNTER 2018-04-14 13:30 | Inpatient (IN) | payer MEDICARE ==
[2018-04-14 13:56] VITALS: BMI 25.7
--- NOTE | 2018-04-14 13:56 | ED PDOC ---
Arrival/HPI - General Chief Complaint: Shortness Of Breath Time Seen by Provider: 04/14/18 13:54 Historian: Patient, Parent, Other (daughter) - History of Present Illness Narrative History of Present Illness (Text): 04/14/18 13:55 pt p/w + 1 month onset of sob, worse with exertion; pt noted to have worsening sob over the last 2 weeks; pt states increaseing fatigue/weakness, easily tired ; pt now is sob at rest; pt was instructed by PCP to come to ED for further eval ; pt's daughter has been evaluating patient frequently and visiting him at his home to help take care of him and noted the progressive worsening of sob; pt + dry cough, + chills, decr appetite, + weight loss of ~ 7lbs over 1 month; pt states no cp/abd pain, no n/v, no numbness/tingling, no urinary changes, + loose bm x 1 day; pt denied any bleeding, no fever/sweats, no LOC, mild lightheadedness, no fall/trauma/sick contact, no travel; pt arrived to ED for further eval; pt's without other complaints. PCP: Dr Dixon Cards: Dr Holloway heme/onc: Dr Jj pt lives at home alone Time/Duration: Other (1 month) Symptom Onset: Gradual Symptom Course: Worsening Severity Level: Severe Activities at Onset: Rest Context: Home (at rest) Past Medical History - Provider Review Nursing Documentation Reviewed: Yes - Travel History Have you recently traveled outside [place] w/in the past 3 mons?: No - Past History Past History: No Previous - Infectious Disease Hx of Infectious Diseases: None - Tetanus Immunization Tetanus Immunization: Unknown - Cardiac Hx Cardiac Disorders: Yes Hx Congestive Heart Failure: Yes Hx Hypertension: Yes - Pulmonary Hx Respiratory Disorders: No - Neurological Hx Neurological Disorder: Yes (Frequent Falls) Other/Comment: FREQUENT FALLS - HEENT Hx HEENT Disorder: No - Renal Hx Renal Disorder: No - Endocrine/Metabolic Hx Diabetes Mellitus Type 2: Yes - Hematological/Oncological Hx Blood Disorders: Yes Hx Cancer: Yes (PROSTATE & SKIN) Hx Shingles: Yes - Integumentary Hx Dermatological Disorder: Yes (Skin Cancer) Other/Comment: UNKNOWN SKIN CA - Musculoskeletal/Rheumatological Hx Musculoskeletal Disorders: Yes Hx Falls: Yes - Gastrointestinal Hx Gastrointestinal Disorders: Yes (chronic diarrhea) - Genitourinary/Gynecological Hx Genitourinary Disorders: Yes Hx Prostate Problems: Yes - Psychiatric Hx Psychophysiologic Disorder: No Hx Substance Use: No - Surgical History Hx Cardiac Catheterization: Yes Hx Coronary Stent: Yes Hx Open Heart Surgery: Yes (right carotid artery angio plasty left femeral artery) Hx Valve Replacement: Yes (aortic) - Suicidal Assessment Feels Threatened In Home Enviroment: No Family/Social History - Physician Review Nursing Documentation Reviewed: Yes Family/Social History: No Known Family HX Smoking Status: Former Smoker Hx Alcohol Use: No Hx Substance Use: No Hx Substance Use Treatment: No Allergies/Home Meds Allergies/Adverse Reactions: Allergies Iodinated Contrast- Oral and IV Dye Allergy (Verified 04/14/18 14:38) DIZZINESS iodine Allergy (Verified 04/14/18 14:38) DIZZINESS Home Medications: Home Meds Medication Instructions Recorded Confirmed Atorvastatin [Lipitor] 80 mg PO DAILY 04/11/17 04/14/18 Clopidogrel [Plavix] 75 mg PO DAILY 04/11/17 04/14/18 Furosemide [Lasix] 40 mg PO DAILY 04/11/17 04/14/18 Gemfibrozil 600 mg PO DAILY 04/11/17 04/14/18 Glipizide [Glipizide ER] 2.5 mg PO BID 04/11/17 04/14/18 Isosorbide Mononitrate ER [Imdur 30 mg PO DAILY 04/11/17 04/14/18 ER] Lisinopril [Zestril] 10 mg PO DIN 04/11/17 04/14/18 Metoprolol Succinate XL [Toprol XL] 100 mg PO DAILY 04/11/17 04/14/18 Review of Systems - Physician Review All systems were reviewed & negative as marked: Yes - Review of Systems Constitutional: Fatigue Eyes: Normal ENT: Normal Respiratory: SOB, Cough. absent: Sputum, Wheezing Cardiovascular: absent: Chest Pain, Palpitations Gastrointestinal: Normal Genitourinary Male: Normal Musculoskeletal: Normal Skin: Normal Neurological: Other (lightheadedness). absent: Headache, Dizziness Endocrine: Normal Hemo/Lymphatic: Normal Psychiatric: Normal Physical Exam - Physical Exam Narrative Physical Exam (Text): 04/14/18 1400 General: alert/awake, GCS = 15, oriented x 3, resting in bed, uncomfortable, cooperative, interactive; mild distress due to respiration difficulties Head: NC/AT; bi-temporal wasting EYE: PERRLA, EOMI, sclera anicteric, no nystagmus, no photophobia; visual field intact b/l Facial: WNL Oral: uvula/tongue are midline, mild dry oral mucosa; no exudate/lesions, no drooling/stridor, no dysphonia; poor dentitions NECK: intact ROM, no midline tenderness, no nuchal rigidity, no meningeal signs ; no step off Chest: coarse breath sounds noted bibasiliar; CTA b/l, no w/r/r; mild tachypenia , no accessory muscle use noted Cardiac: +S1, +S2, no m/r/r, no tachycardia Abdominal: +BS, soft/nd/nt, well nourished patient; no masses/rebound/guarding/ rigidity; no amador's sign, no mcburney's point tenderness Extremities: intact ROM, strength 5/5 grossly intact in all limbs, neurovasc intact b/l; + ambulatory; reflex +2/2; no pitting edema noted b/l, no kim's sign b/l BACK: no step off, no midline tenderness, NO crepitus, no gross deformities noted; Intact ROM SKIN: cap refill ~ 1 sec, no ulcerations, no petechiae, no rashes; + mild pallor NEURO: CNII-XII WNL, no facial asymmetries, no slurr speech, oriented x 3 NIH stroke scale ~ 0 Psych: normal insight, normal affect; follows command with ease Vital Signs Reviewed: Yes Vital Signs Temp Pulse Resp BP Pulse Ox 04/14/18 17:15 88 18 140/88 95 04/14/18 17:14 140/86 04/14/18 16:15 86 15 135/78 96 04/14/18 14:25 18 04/14/18 14:23 94 L 04/14/18 13:57 98.4 F 90 18 133/71 93 L Temperature: Afebrile Blood Pressure: Normal Pulse: Regular Respiratory Rate: Normal Appearance: Positive for: Well-Appearing, Uncomfortable. No: Non-Toxic, Comfortable, Ill-Appearing Pain Distress: None Mental Status: Positive for: Alert and Oriented X 3 - Systems Exam Head: Present: Atraumatic, Normocephalic Pupils: Present: PERRL Extroacular Muscles: Present: EOMI Conjunctiva: Present: Normal Mouth: Present: Moist Mucous Membranes Neck: Present: Normal Range of Motion Respiratory/Chest: Present: Clear to Auscultation, Good Air Exchange. No: Respiratory Distress, Accessory Muscle Use Cardiovascular: Present: Regular Rate and Rhythm, Normal S1, S2. No: Murmurs Abdomen: No: Tenderness, Distention, Peritoneal Signs Back: Present: Normal Inspection Upper Extremity: Present: Normal Inspection. No: Cyanosis, Edema Lower Extremity: Present: Normal Inspection. No: Edema Neurological: Present: GCS=15, CN II-XII Intact, Speech Normal Skin: Present: Warm, Dry, Normal Color. No: Rashes Psychiatric: Present: Alert, Oriented x 3, Normal Insight, Normal Concentration Medical Decision Making ED Course and Treatment: 04/14/18 14:00 Impression: sob x month i have consider all the differential diagnosis regarding pt's chief medical complaints/clinical findings, including but are not limited to: worsening sob x 1 month A/P: worsening sob x 1 month - labs - iv - acs eval - xray - supportive care - observe/reevaluation 1500 pt is currently comfortable pt denied Chest pain currently due to pt's pronounced/persistent SOB/abnl lab results, will recommend patient for admission family/patient are made aware of his medical results agrees with admission recommendation vital signs currently stable 04/14/18 15:55 Dr Murillo made aware of emergency department management/treatment and patients medical complaints. Is agreeable with emergency department for admission of patient. Would like to consult cardiology - Dr Gomez Re-evaluation Time: 16:00 Reassessment Condition: Improving,but remains with symptoms - Critical Care Critical Care Minutes: 30 minutes Critical Care Time: Excluding Proc Time Narrative Critical Care (Text): 04/14/18 17:57 critical care time: 30min, excluding procedure time, excluding time teaching residents/students/mid-level providers; including initial eval/diagnosis, diagnostic interpretation, re-eval, consultations, final disposition - Lab Interpretations Lab Results: 04/14/18 14:05 04/14/18 14:05 Lab Results 04/14/18 14:05: Sodium 138, Potassium 4.1, Chloride 105, Carbon Dioxide 19 L, Anion Gap 19, BUN 36 H, Creatinine 1.3, Est GFR ( Amer) > 60, Est GFR ( Non-Af Amer) 52, Random Glucose 216 H, Calcium 9.1, Magnesium 2.2, Total Bilirubin 2.0 H, AST 27, ALT 22, Alkaline Phosphatase 73, Lactate Dehydrogenase 679, Total Creatine Kinase 169, Troponin I 0.02, NT-Pro-B Natriuret Pep 6010 H, Total Protein 7.0, Albumin 4.1, Globulin 2.9, Albumin/Globulin Ratio 1.4 04/14/18 14:05: Urine Color Yellow, Urine Appearance Clear, Urine pH 6.0, Ur Specific [place] 1.025, Urine Protein 30 H, Urine Glucose (UA) Negative, Urine Ketones Trace H, Urine Blood Negative, Urine Nitrate Negative, Urine Bilirubin Negative, Urine Urobilinogen 1.0 H, Ur Leukocyte Esterase Negative, Urine RBC 0 - 2, Urine WBC 0 - 2, Ur Epithelial Cells 0 - 2, Amorphous Sediment Few, Urine Bacteria Many, Fine Granular Casts 0 - 2, Coarse Granular Casts Trace H 04/14/18 14:05: PT 15.2 H, INR 1.33, APTT 31.4 04/14/18 14:05: WBC 7.4 D, RBC 3.28 L, Hgb 10.9 L, Hct 33.9 L, MCV 103.4, MCH 33.2, MCHC 32.2, RDW 14.4, Plt Count 119 L, MPV 12.0 H, Gran % 77.2 H, Lymph % ( Auto) 12.2 L, [place] % (Auto) 10.2 H, Eos % (Auto) 0.3 L, Baso % (Auto) 0.1, Gran # 5.68, Lymph # (Auto) 0.9 L, [place] # (Auto) 0.8 H, Eos # (Auto) 0.0, Baso # ( Auto) 0.01 I have reviewed the lab results: Yes Interpretation: Abnormal lab values (elevated GLUC and BNP) - RAD Interpretation Narrative RAD Interpretations (Text): Date of service: 04/14/2018 HISTORY: sob COMPARISON: 04/11/2017 FINDINGS: LUNGS: No active pulmonary disease. PLEURA: Small right pleural effusion. CARDIOVASCULAR: Moderate cardiomegaly. Mild vascular congestion OSSEOUS STRUCTURES: Sternal wires VISUALIZED UPPER ABDOMEN: Normal. OTHER FINDINGS: None. IMPRESSION: Moderate cardiomegaly and mild vascular congestion with a small right effusion Radiology Orders: 04/14/18 13:58 CHEST PORTABLE [RAD] Stat Community Ambassador: Radiologist - EKG Interpretation EKG Interpretation (Text): 04/14/18 17:39 atrial fib at 90 bpm, normal axis, no ectopy, + LBBB, non-specific T changes, ABN LEKG; unchanged compare with old ekg 04/2017 Interpreted by ED Physician: Yes Type: 12 lead EKG Comparison: Similar to previous EKG - Medication Orders Current Medication Orders: Discontinued Medications Furosemide (Lasix) 20 mg IVP STAT STA Stop: 04/14/18 15:34 Last Admin: 04/14/18 17:14 Dose: 20 mg MAR Blood Pressure Document 04/14/18 17:14 SF (Rec: 04/14/18 17:15 SF [id number]) Blood Pressure Blood Pressure (100/60-150/90) 140/86 IVP Administration Document 04/14/18 17:14 SF (Rec: 04/14/18 17:15 [id number] Charges for Administration # of IVP Administrations 1 - Scribe Statement The provider has reviewed the documentation as recorded by the Scribe Cherie Santillan All medical record entries made by the Scribe were at my direction and personally dictated by me. I have reviewed the chart and agree that the record accurately reflects my personal performance of the history, physical exam, medical decision making, and the department course for this patient. I have also personally directed, reviewed, and agree with the discharge instructions and disposition. Disposition/Present on Arrival - Present on Arrival Any Indicators Present on Arrival: No History of DVT/PE: Yes History of Uncontrolled Diabetes: Yes Urinary Catheter: No History Surgical Site Infection Following: CABG - Mediastinitis - Disposition Have Diagnosis and Disposition been Completed?: Yes Diagnosis: CHF (congestive heart failure), Shortness of breath, Weakness, Pleural effusion Diagnosis: (Ruled Out): Acute on chronic diastolic CHF (congestive heart failure), Acute on chronic clinical systolic heart failure Disposition: HOSPITALIZED Disposition Time: 16:00 Patient Plan: Admission, Telemetry Patient Problems: Current Active Problems Problem Status Onset CHF (congestive heart failure) Acute Pleural effusion Acute Shortness of breath Acute Weakness Acute Condition: STABLE
--- NOTE | 2018-04-14 14:16 | RAD ---
Date of service: 04/14/2018 HISTORY: sob COMPARISON: 04/11/2017 FINDINGS: LUNGS: No active pulmonary disease. PLEURA: Small right pleural effusion. CARDIOVASCULAR: Moderate cardiomegaly. Mild vascular congestion OSSEOUS STRUCTURES: Sternal wires VISUALIZED UPPER ABDOMEN: Normal. OTHER FINDINGS: None. IMPRESSION: Moderate cardiomegaly and mild vascular congestion with a small right effusion
[2018-04-14 15:06] LABS: BASO # 0.01 K/mm3 (0.0-2.0); BASO % 0.1 % (0.0-3.0); EOS % 0.3 % (1.5-5.0); GRAN # 5.68 (1.4-6.5); GRAN % 77.2 % (50.0-68.0); HEMOGLOBIN 10.9 g/dL (14.0-18.0); LYMPH # 0.9 (1.2-3.4); LYMPH % 12.2 % (22.0-35.0); MEAN CELL VOLUME 103.4 fl (80.0-105.0); MEAN CORPUSCULAR HEMOGLOBIN 33.2 pg (25.0-35.0); MEAN CORPUSCULAR HGB CONC 32.2 g/dl (31.0-37.0); MONO # 0.8 (0.1-0.6); MONO % 10.2 % (1.0-6.0); RBC 3.28 10^6/uL (3.5-6.1); RED CELL DISTRIBUTION WIDTH 14.4 % (11.5-14.5); URINE BILIRUBIN NEGATIVE (NEGATIVE); URINE BLOOD NEGATIVE (NEGATIVE); URINE GLUCOSE (UA) NEGATIVE (NEGATIVE); URINE LEUKOCYTE ESTERASE NEGATIVE Leu/uL (NEGATIVE); URINE PROTEIN 30 mg/dL (<30 mg/dL); WHITE BLOOD COUNT 7.4 10^3/ul (4.5-11.0)
[2018-04-14 15:12] LABS: URINE APPEARANCE CLEAR (CLEAR); URINE COLOR YELLOW (YELLOW)
[2018-04-14 15:14] LABS: URINE BACTERIA MANY (NEG); URINE EPITHELIAL CELLS 0 - 2 /hpf (0-5); URINE FINE GRANULAR CAST 0 - 2 /hpf (0-2); URINE RBC 0 - 2 /hpf (0-2); URINE WBC 0 - 2 /hpf (0-6)
[2018-04-14 15:15] LABS: URINE AMORPHOUS SEDIMENT FEW; URINE COARSE GRANULAR CAST TRACE /hpf (0-2)
[2018-04-14 15:16] LABS: INR 1.33; PARTIAL THROMBOPLASTIN TIME 31.4 Seconds (25.1-36.5); PROTHROMBIN TIME 15.2 SECONDS (9.4-12.5)
[2018-04-14 15:17] LABS: ALB/GLOB RATIO 1.4 (1.1-1.8); ALBUMIN 4.1 g/dL (3.0-4.8); ALT/SGPT 22 U/L (7-56); AST/SGOT 27 U/L (17-59); BLOOD UREA NITROGEN 36 mg/dL (7-21); CALCIUM 9.1 mg/dL (8.4-10.5); GFR AFRICAN-AMERICAN > 60; GFR NON-AFRICAN AMERICAN 52
[2018-04-14 15:28] LABS: B-TYPE NATRIURETIC PEPTIDE 6010 pg/mL (0-450); TROPONIN I 0.02 ng/mL
--- NOTE | 2018-04-14 19:22 | CARD ---
APPROVED REPORT Date of service: 04/14/2018 EKG Measurement Heart [id number] <Conclusion> Atrial fibrillation Left bundle branch block Abnormal ECG
[2018-04-14] MEDS: Insulin Reg-LOW-Coverage SC SCH (22:38)
[2018-04-14] MEDS ORDERED: Pneumococcal 23-Valent Vaccine IM ONE (22:54)
[2018-04-15] MEDS: Metoprolol Succinate 100 mg XL Tab PO SCH (08:09)
[2018-04-15] MEDS: Insulin Reg-LOW-Coverage SC SCH ×4 (08:31→22:00)
--- NOTE | 2018-04-15 12:21 | CARD ---
APPROVED REPORT Date of service: 04/15/2018 EKG Measurement Heart [id number] <Conclusion> Atrial fibrillation, PVCs vs aberrancy Left bundle branch block Abnormal ECG
--- NOTE | 2018-04-15 14:27 | CON ---
Copied To: Hossein Gomez MD Attending MD: Hossein Gomez MD DATE: 04/15/2018 INDICATIONS: Shortness of breath, CHF. HISTORY OF PRESENT ILLNESS: This is an 87-year-old man known to me from a prior admission about a year ago. He has known coronary artery disease with severe LV dysfunction. He presents with worsening shortness of breath and dyspnea on exertion, progressively worsening over the course of several days and weeks. There was no chest pain. He came to the emergency room. He is found to have mild vascular congestion on the chest x-ray and was admitted with the diagnosis of CHF. This morning he is resting comfortably in bed. He is not short of breath. There was no chest pain, orthopnea, PND, syncope, presyncope, lightheadedness, dizziness, vertigo, palpitation, edema. There was no fever, chills, cough, sputum production, hemoptysis. There was no abdominal pain, nausea, vomiting, diarrhea, constipation, melena. PAST MEDICAL HISTORY: His past medical history is complex. He has remote myocardial infarction, coronary artery bypass surgery with aortic valve replacement. 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 He has had congestive heart failure, hypertension, diabetes, cerebrovascular disease, stroke. He has had mesenteric ischemia. An echocardiogram a year ago, demonstrated moderate LV dysfunction, moderate MR and moderate TR. He has not wanted a defibrillator. He is DNR/DNI. MEDICATIONS: At the time of admission include Lopid, glipizide, Imdur, Lasix, Lipitor, Plavix, metoprolol, lisinopril. ALLERGIES: HE NOTES ALLERGIES TO IV CONTRAST, IODINE. SOCIAL HISTORY: He lives at home. He is . He does not smoke cigarettes. He does not drink alcohol. He is not very ambulatory. REVIEW OF SYSTEMS: Ten point review of systems is otherwise unremarkable except as noted above. FAMILY HISTORY: Noncontributory. PHYSICAL EXAMINATION: GENERAL: He is a well-developed elderly male, lying in bed on telemetry, in no acute distress. He is in atrial fibrillation, which appears to be a new rhythm compared to one year ago, ventricular rate 75. VITAL SIGNS: Afebrile, blood pressure 107/57, respirations 18 to 20, O2 saturation 96% on nasal cannula. HEENT: Reveals no neck vein distension, thyromegaly, carotid bruits. Mucous membranes moist. Conjunctivae pink. NECK: Supple. LUNGS: Lung alejandro, few scattered rhonchi. HEART: Reveals an irregular rhythm. Normal first and second heart sounds. Systolic murmur in the aortic space along the left sternal border. PMI laterally displaced. ABDOMEN: Soft. Bowel sounds present. No mass, organomegaly, tenderness, rebound or guarding. No CVA tenderness. No palpable abdominal aortic aneurysm. EXTREMITIES: Revealed no cyanosis, clubbing or edema. NEUROLOGIC: Awake, alert and oriented. SKIN: Warm and dry. No rash or cellulitis. PSYCHIATRIC: Normal as to mood and affect. LABORATORY DATA AND IMAGING: A chest x-ray revealed cardiomegaly, vascular congestion, which was mild and a small right pleural effusion. EKG demonstrates atrial fibrillation, which appears to be new compared to one year ago. There is a left bundle branch block and ST wave changes. White count normal, hemoglobin 10.9, hematocrit 33.9, platelet count 119,000. PT 15.2, INR 1.33, PTT 31.4. Electrolytes unremarkable. BUN 36, creatinine 1.3. Blood sugar 216. Bilirubin 2. AST, ALT and alk phos unremarkable. CK 169. Troponin negative x2. BNP 6010. Urinalysis is noted. IMPRESSION AND PLAN: Flash Chun is an 87-year-old man with known coronary artery disease, remote myocardial infarction, remote coronary artery bypass surgery with aortic valve replacement for aortic stenosis with [id number] left ventricular dysfunction who presents with shortness of breath and atrial fibrillation, which appears to be new compared to his EKG about a year ago. At this time he is admitted to telemetry. He is getting intravenous Lasix. He already feels better. I will check TSH level. I will check his old records. We will continue cardiac medications including Imdur, Lipitor, Plavix, metoprolol, lisinopril. I will get an echocardiogram. He should be considered for anticoagulation. His LATONIA score is at least 7. So that he has high risk for embolic events. If anticoagulation is not appropriate, perhaps adding aspirin to Plavix would be considered. We will monitor inputs and outputs. Check stool for occult blood. I will follow along with you. I will make additional recommendations based on his clinical course. Hossein Gomez MD Rober # [id number] CARA
--- NOTE | 2018-04-15 23:13 | HP ---
Copied To: Cecelia Diop MD Attending MD: Cecleia Diop MD HISTORY OF PRESENT ILLNESS: Mr. Alberts is an 87-year-old female admitted to hospital with shortness of breath. Chest x-ray showed vascular congestion and cardiomegaly consistent with congestive cardiac failure. He has history of coronary artery disease, atrial fibrillation, aortic stenosis repair in the past. Shortness of breath has improved during hospitalization. No fever, no cough with expectoration. Also found to have anemia with low hemoglobin, bilirubin elevated at 2. Denies any cough with expectoration. No fever. No chest pain. PAST MEDICAL HISTORY: Diabetes mellitus type 2, frequent falls, history of prostate cancer, hypertension, congestive cardiac failure. PAST SURGICAL HISTORY: Coronary artery disease, open heart surgery, carotid artery angioplasty, aortic valve replacement. PERSONAL HISTORY: Former smoker. No history of alcohol abuse. ALLERGIES: IODINATED CONTRAST. HOME MEDICATIONS: Lipitor 80 mg daily, Plavix 75 mg daily, Lasix 40 mg daily, gemfibrozil 600 mg p.o. daily, glipizide 2.5 mg p.o. b.i.d., Imdur 100 mg daily. REVIEW OF SYSTEMS: As per HPI. Rest of 12-point review of systems reviewed negative. PHYSICAL EXAMINATION: General: Comfortable in bed, in no acute distress. VITAL SIGNS: Temperature 98.4, heart rate 88 per minute, respiratory rate 18 per minute, blood pressure 140/88, pulse ox is 95% on room air. HEENT: Pallor positive. Neck: No lymphadenopathy. Chest: Air entry present and equal bilaterally. No added sounds. Cardiovascular exam: S1, S2 normal. No murmur. No gallop. Abdomen: Soft, nontender. No hepatosplenomegaly. Extremities: No edema. TRUST ADMINISTRATOR: Alert and oriented x3. No focal sensory or motor deficit. DIAGNOSTIC DATA: Chest x-ray as per HPI. LABORATORY DATA: White count 7.4, hemoglobin 10.9, hematocrit 33.9, platelets 119. Sodium 138, potassium 4.1, BUN 36, creatinine 1.3, glucose 216. ASSESSMENT: 1. Congestive heart failure exacerbation. 2. Cardiomegaly. 3. Shortness of breath. 4. Weakness. 5. Anemia. 6. Hyperbilirubinemia. 7. History of prostate cancer. PLAN: He will be admitted to the hospital tele monitoring. Cardiology consultation with Dr. Gomez requested. Notes reviewed. Input appreciated. Lipitor 80 mg daily, Plavix 75 mg p.o. daily, Lasix 40 mg IV daily, Lopid 600 mg daily, glipizide 2.5 mg daily, sliding scale insulin, Imdur 30 mg daily, lisinopril 10 mg daily, metoprolol 100 mg daily. No signs of infection. We will continue to watch closely. UA was negative. He also has anemia, hemoglobin 10.9. Iron studies, B12, folate level ordered with a.m. labs. Creatinine is stable at 1.3. Bilirubin elevated at 2. BNP elevated at 6000 consistent with congestive cardiac failure. We will continue to monitor closely. Cecelia Diop MD
--- NOTE | 2018-04-16 07:32 | CP.PCM.PN ---
Subjective - Date & Time of Evaluation Date of Evaluation: 04/16/18 Time of Evaluation: 07:00 - Subjective Subjective: Stable on 2R. No CP or SOB. V/S noted. AF PE: Lungs: clear Cor.: irreg., S1S2, sys. murmur Abd.: soft, benighn Ext.: min. edema Neuro.: alert I/O= 1240/1850 Labs pending Echo: see report. Severe LVD, etc. Assessment: Dyspnea, Weakness CHF AF CAD/Remote CT/CABG/AVR Severe LVD HBP Diabetes AAA H/O mesenteric ischemia CVD CVA Anemia Moderate MR and TR DNR/DNI Plan: Await labs, ECG Continue IV lasix Monitor I/O, labs, sats, etc. 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 Objective - Vital Signs/Intake and Output Vital Signs (last 24 hours): Temp Pulse Resp BP Pulse Ox 98.4 F 100 H 19 135/75 96 04/16/18 00:01 04/16/18 02:00 04/16/18 00:01 04/16/18 00:01 04/16/18 00:01 Intake and Output: 04/16/18 04/16/18 06:59 18:59 Intake Total 1240 Output Total 1850 Balance -610 - Medications Medications: Current Medications Atorvastatin Calcium (Lipitor) 80 mg PO DIN [facility] Last Admin: 04/15/18 17:05 Dose: 80 mg Clopidogrel Bisulfate (Plavix) 75 mg PO DAILY [facility] Last Admin: 04/15/18 10:14 Dose: 75 mg Furosemide (Lasix) 40 mg IVP DAILY [facility] Last Admin: 04/15/18 10:14 Dose: 40 mg Gemfibrozil (Lopid) 600 mg PO DAILY [facility] Last Admin: 04/15/18 10:14 Dose: 600 mg Glipizide (Glucotrol) 2.5 mg PO ACBD [facility] Last Admin: 04/15/18 17:05 Dose: 2.5 mg Insulin Human Regular (Humulin R Low) 0 units SC ACHS [facility] PRN Reason: Protocol Last Admin: 04/15/18 22:00 Dose: Not Given Isosorbide Mononitrate (Imdur Er) 30 mg PO DAILY [facility] Last Admin: 04/15/18 10:14 Dose: 30 mg Lisinopril (Zestril) 10 mg PO DIN [facility] Last Admin: 04/15/18 17:06 Dose: 10 mg Metoprolol Succinate (Toprol Xl) 100 mg PO BRK [facility] Last Admin: 04/15/18 08:09 Dose: Not Given - Labs Labs: PT 15.2 SECONDS (9.4-12.5) H 04/14/18 14:05 INR 1.33 04/14/18 14:05 APTT 31.4 Seconds (25.1-36.5) 04/14/18 14:05
[2018-04-16] MEDS: Insulin Reg-LOW-Coverage SC SCH ×4 (07:49→22:34)
[2018-04-16] MEDS: Metoprolol Succinate 100 mg XL Tab PO SCH (07:51)
[2018-04-16 08:06] LABS: BLOOD UREA NITROGEN 36 mg/dL (7-21); CALCIUM 8.9 mg/dL (8.4-10.5); GFR AFRICAN-AMERICAN > 60; GFR NON-AFRICAN AMERICAN > 60
[2018-04-16 08:09] LABS: IRON 44 ug/dL (45-180)
[2018-04-16 08:18] LABS: % IRON SATURATION 15 % (20-55); TOTAL IRON BINDING CAPACITY 285 ug/dL (261-462)
[2018-04-16 08:53] LABS: HEMOGLOBIN 10.2 g/dL (14.0-18.0); MEAN CELL VOLUME 103.8 fl (80.0-105.0); MEAN CORPUSCULAR HEMOGLOBIN 32.6 pg (25.0-35.0); MEAN CORPUSCULAR HGB CONC 31.4 g/dl (31.0-37.0); MEAN PLATELET VOLUME 11.6 fl (7.0-11.0); RBC 3.13 10^6/uL (3.5-6.1); RED CELL DISTRIBUTION WIDTH 14.3 % (11.5-14.5); WHITE BLOOD COUNT 6.6 10^3/ul (4.5-11.0)
--- NOTE | 2018-04-16 09:08 | CARD ---
APPROVED REPORT Date of service: 04/15/2018 EXAM: Two-dimensional and M-mode echocardiogram with Doppler and color Doppler. Other Information Quality : AverageRhythm : INDICATION Dyspnea Congestive Heart Failure 2D DIMENSIONS Left Atrium (2D)4.7 (1.6-4.0cm)IVSd1.3 (0.7-1.1cm) Aortic Root (2D)4.0 (2.0-3.7cm)LVDd4.5 (3.9-5.9cm) PWd1.3 (0.7-1.1cm)LVDs4.0 (2.5-4.0cm) FS (%) 12.0 %LVEF (%)25.0 (>50%) Aortic Valve AO Peak GR.20mmHg Mitral Valve MV E Fuwnvuxx387.0cm/sMV A Mpxmrxgl22.9cm/sE/A ratio3.1 TDI E/Lateral E'0.0E/Medial E'0.0 Pulmonary Valve PV Peak Grad.2mmHg Tricuspid Valve TR Peak [id number] [id number] Peak Gr.37mmHg [id number] LEFT VENTRICLE The left ventricle is normal size. There is mild concentric left ventricular hypertrophy. Left ventricle systolic function is severely impaired. The Ejection Fraction is 20-25%. There is severe global hypokinesis with paradoxial septal motion. RIGHT VENTRICLE The right ventricle is normal size. ATRIA The left atrium is moderately dilated. The right atrium is mildly dilated. The interatrial septum is intact with no evidence for an atrial septal defect. AORTIC VALVE The prosthetic aortic valve appears normal. MITRAL VALVE The mitral valve is normal in structure. The mitral valve is moderately thickened. Mitral annular calcification is mild to moderate. Mitral regurgitation is mild to moderate. TRICUSPID VALVE The tricuspid valve is normal in structure. The tricuspid valve is normal in structure. There is mild tricuspid regurgitation. There is mild-moderate pulmonary hypertension. PULMONIC VALVE The pulmonic valve is not well visualized. GREAT VESSELS The aortic root is normal in size. PERICARDIAL EFFUSION There is no pericardial effusion. <Conclusion> The left ventricle is normal size. There is mild concentric left ventricular hypertrophy. Left ventricle systolic function is severely impaired. The Ejection Fraction is 20-25%. There is severe global hypokinesis with paradoxial septal motion. The prosthetic aortic valve appears normal. Mitral regurgitation is mild to moderate. There is mild tricuspid regurgitation. There is mild-moderate pulmonary hypertension.
[2018-04-16] MEDS: Potassium Chloride 20 mEq ER Tab PO SCH ×2 (10:40→18:10)
--- NOTE | 2018-04-16 20:42 | PN ---
Copied To: Cecelia Diop MD Attending MD: Cecelia Diop MD DATE: 04/16/2018 SUBJECTIVE: He is comfortable in bed in no acute distress. He is short of breath walking short distances. He is even short of breath while getting up from the bed to the chair. Denies any chest pain. Evaluated by Cardiology, Dr. Gomez. REVIEW OF SYSTEMS: As per HPI. Rest of 12-point review of systems reviewed negative. PHYSICAL EXAMINATION: GENERAL: Comfortable in bed, in no acute distress. VITAL SIGNS: Temperature 98.5, heart rate 100 per minute, respiratory rate 15 per minute, blood pressure 130/70, pulse ox is 95% on oxygen by nasal cannula. HEENT: Pallor positive. NECK: No lymphadenopathy. CHEST: Air entry present and equal bilateral. No added sound. CARDIOVASCULAR: S1 and S2 normal. No murmur. No gallop. ABDOMEN: Soft, nontender. No hepatosplenomegaly. EXTREMITIES: No edema. CENTRAL NERVOUS SYSTEM: Alert and oriented x3. No focal sensory or motor deficit. LABORATORY DATA: White count 6.6, hemoglobin 10.2, hematocrit 32.2, platelet 120. Sodium 142, potassium 3.6, BUN 36, creatinine 1.1, iron 44, iron saturation 15%. BNP 6000. MEDICATIONS: Eliquis 2.5 mg p.o. b.i.d., Lipitor 80 mg daily, Plavix 75 mg daily, Lasix 40 mg IV daily, gemfibrozil 600 daily, Imdur 30 mg daily, metoprolol 100 mg daily, lisinopril 10 mg daily, K-Dur 20 mEq p.o. b.i.d. ASSESSMENT: 1. Congestive heart failure. 2. Chronic obstructive pulmonary disease exacerbation. 3. Respiratory distress. 4. History of prostate cancer. PLAN: Evaluated by Cardiology. Outpatient followup is recommended by Dr. Gomez. We will continue Plavix 75 mg p.o. b.i.d., Lasix IV. Continue cardiac medications, lisinopril, Imdur, metoprolol. Cecelia Diop MD : 04/16/2018 20:16:25
[2018-04-16 23:44] VITALS: RESP 19
[2018-04-17 06:32] VITALS: BP 102/59; PULSE 79; TEMP 98.8; O2SAT 93
[2018-04-17 06:54] LABS: BLOOD UREA NITROGEN 36 mg/dL (7-21); CALCIUM 8.7 mg/dL (8.4-10.5); GFR AFRICAN-AMERICAN > 60; GFR NON-AFRICAN AMERICAN > 60
--- NOTE | 2018-04-17 07:46 | CP.PCM.PN ---
Subjective - Date & Time of Evaluation Date of Evaluation: 04/17/18 Time of Evaluation: 07:00 - Subjective Subjective: Stable on 2R. No CP or SOB. V/S noted. AF PE: Lungs: clear Cor.: irreg., S1S2, sys. murmur Abd.: soft, benign Ext.: no edema Neuro.: alert I/O= 2040/2800 Labs noted: K+= 3.8, Cr. = 1.1, Mg.++= 2.1 Echo: see report. Severe LVD, etc. Objective - Vital Signs/Intake and Output Vital Signs (last 24 hours): Temp Pulse Resp BP Pulse Ox 98.8 F 79 19 102/59 L 93 L 04/17/18 06:00 04/17/18 06:00 04/17/18 06:00 04/17/18 06:00 04/17/18 06:00 Intake and Output: 04/17/18 04/17/18 06:59 18:59 Intake Total 120 Output Total 500 Balance -380 - Medications Medications: Current Medications Apixaban (Eliquis) 2.5 mg PO BID [facility] PRN Reason: Protocol Last Admin: 04/16/18 18:09 Dose: 2.5 mg Atorvastatin Calcium (Lipitor) 80 mg PO DIN [facility] Last Admin: 04/16/18 18:11 Dose: 80 mg Clopidogrel Bisulfate (Plavix) 75 mg PO DAILY [facility] Last Admin: 04/16/18 10:40 Dose: 75 mg Furosemide (Lasix) 40 mg IVP DAILY [facility] Last Admin: 04/16/18 10:40 Dose: 40 mg Gemfibrozil (Lopid) 600 mg PO DAILY [facility] Last Admin: 04/16/18 10:40 Dose: 600 mg Glipizide (Glucotrol) 2.5 mg PO ACBD [facility] Last Admin: 04/16/18 18:09 Dose: 2.5 mg Insulin Human Regular (Humulin R Low) 0 units SC [facility] PRN Reason: Protocol Last Admin: 04/16/18 22:34 Dose: Not Given Isosorbide Mononitrate (Imdur Er) 30 mg PO DAILY [facility] Last Admin: 04/16/18 10:39 Dose: 30 mg Lisinopril (Zestril) 10 mg PO DIN [facility] Last Admin: 04/16/18 18:07 Dose: Not Given Metoprolol Succinate (Toprol Xl) 100 mg PO BRK [facility] Last Admin: 04/16/18 07:51 Dose: 100 mg Potassium Chloride (K-Dur 20 Meq Er Tab) 20 meq PO BID [facility] Last Admin: 04/16/18 18:10 Dose: 20 meq - Labs Labs: 04/16/18 06:30 04/17/18 05:30 PT 15.2 SECONDS (9.4-12.5) H 04/14/18 14:05 INR 1.33 04/14/18 14:05 APTT 31.4 Seconds (25.1-36.5) 04/14/18 14:05 Assessment and Plan - Assessment and Plan (Free Text) Assessment: Assessment: Dyspnea, Weakness CHF AF CAD/Remote MA/CABG/AVR Severe LVD HBP Diabetes AAA H/O mesenteric ischemia CVD CVA Anemia Mild/Moderate MR and PH, and moderate TR on echo DNR/DNI Plan: IV > PO lasix today Monitor I/O, labs, sats, etc. 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 OOB/PT TCU eval.
--- NOTE | 2018-04-17 08:57 | PN ---
Copied To: Forest Murillo MD Attending MD: Forest Murillo MD DATE: 04/17/2018 SUBJECTIVE: The patient has no complaints of any chest pain. No shortness of breath. No headaches or dizziness. PHYSICAL EXAMINATION: VITAL SIGNS: Temperature is 98.8, pulse is 79, blood pressure is 102/59, respirations 19. GENERAL: The patient is lying in bed, flat, comfortable. HEENT: No oral lesion. Anicteric sclerae. Moist mucosa. NECK: No JVD, adenopathy, or thyromegaly. CARDIOVASCULAR: S1 and S2, regular. No murmurs, rubs, or gallops. LUNGS: Clear to auscultation bilaterally. No wheeze, rales, or rhonchi. ABDOMEN: Bowel sounds are positive, soft, nontender and nondistended. EXTREMITIES: No cyanosis, clubbing or edema. LABORATORY DATA: White count of 6.6, hemoglobin 10.2. Echo shows EF of 20-25%. ASSESSMENT: 1. Acute congestive heart failure secondary to systolic dysfunction. 2. Status post aortic valve replacement. 3. Mitral regurgitation. 4. Pulmonary hypertension. 5. Chronic obstructive pulmonary disease. 6. Atrial fibrillation. 7. DNR/DNI. 8. Dyslipidemia. 9. Iron-deficiency anemia. PLAN: The patient has been started on Eliquis. The patient is receiving potassium. He is also on Lasix daily. He is on Lipitor for dyslipidemia. The patient is on gemfibrozil for his dyslipidemia. 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 The patient has iron-deficiency anemia. He is advised about taking his medications. He was seen by Physical Therapy and it is recommended that he go home with services. Forest Murillo MD
[2018-04-17] MEDS: Insulin Reg-LOW-Coverage SC SCH (10:30)
[2018-04-17] MEDS: Potassium Chloride 20 mEq ER Tab PO SCH (10:47)
[2018-04-17] MEDS: Metoprolol Succinate 100 mg XL Tab PO SCH (10:48)
== END 2018-04-17 12:10 | disposition home or self-care (01) | DRG 292 ==
LOC: ED 13:30 → ERH 15:55 → 2RNO 18:32
PROVIDERS: ADMIT Internal Medicine Nephrology; ATTEND Internal Medicine Nephrology
DX: I11.0 Hypertensive heart disease with heart failure (principal); J44.1 Chronic obstructive pulmonary disease with (acute) exacerbation; R17 Unspecified jaundice; I50.21 Acute systolic (congestive) heart failure; I48.91 Unspecified atrial fibrillation; E11.9 Type 2 diabetes mellitus without complications; E78.5 Hyperlipidemia, unspecified; D50.9 Iron deficiency anemia, unspecified; I25.10 Atherosclerotic heart disease of native coronary artery without angina pectoris; I25.2 Old myocardial infarction; I27.20 Pulmonary hypertension, unspecified; I34.0 Nonrheumatic mitral (valve) insufficiency; I35.0 Nonrheumatic aortic (valve) stenosis; Z86.73 Personal history of transient ischemic attack (TIA), and cerebral infarction without residual deficits; I71.4 Abdominal aortic aneurysm, without rupture; Z66 Do not resuscitate; Z79.02 Long term (current) use of antithrombotics/antiplatelets; Z79.84 Long term (current) use of oral hypoglycemic drugs; Z79.899 Other long term (current) drug therapy; Z85.46 Personal history of malignant neoplasm of prostate; Z85.828 Personal history of other malignant neoplasm of skin; Z87.891 Personal history of nicotine dependence; Z95.1 Presence of aortocoronary bypass graft; Z95.2 Presence of prosthetic heart valve; Z95.5 Presence of coronary angioplasty implant and graft